=== PATIENT | male | born 1960 | race Caucasian/White ===

== ENCOUNTER → 2016-06-05 | Outpatient (CLI) | payer BC ==
[~2016-06-05] MED LIST: ACET-1138 PO; ASPEC325 PO; ASPI81TA28 PO; FRRG PO; FURO40TA3 PO; HYDR-5688 PO; MELATAB2 PO; METH1CHW PO; MULT-506 PO; OXYC-106 PO; PANT40TA PO; POTA10CA28 PO; PRAM0.129 PO; RXC5 PO; SUVO1TAB4 PO; TRAM-10 PO; ZINC1CAP PO
[2016-06-05 17:16] LABS: BASO % 0.6 %; BASO ABS # 0.05 K/uL (0-0.2); COMPLETE YES; EOS % 3.4 %; HEMATOCRIT 40.2 % (42-52); IG% 0.2 %; LYMPH % 30.5 %; LYMPH ABS # 2.44 K/uL (1.2-3.4); MEAN CELL VOLUME 82.5 fL (80-100); MEAN CORPUSCULAR HEMOGLOBIN 27.9 pg (25-34); MEAN CORPUSCULAR HGB CONC 33.8 g/dl (32-36); MEAN PLATELET VOLUME 10.3 fL (7.4-10.4); MONO % 10.5 %; NEUT % 54.8 %; PLATELET COUNT 430 K/uL (130-400); RED BLOOD COUNT 4.87 M/uL (4.7-6.1); WHITE BLOOD COUNT 8.01 K/uL (4.8-10.8)
[2016-06-05 17:26] LABS: INR 0.9 (0.9-1.1); PARTIAL THROMBOPLASTIN RATIO 1.2; PROTHROMBIN TIME (PATIENT) 9.9 SECONDS (9.0-12.0)
[2016-06-05 19:11] LABS: BLOOD UREA NITROGEN 9 mg/dl (7-18); BUN/CREATININE RATIO 9.9 (10-20); CALCIUM 9.3 mg/dl (8.5-10.1); CARBON DIOXIDE 30 mmol/L (21-32); CHLORIDE 103 mmol/L (98-107); CREATININE 0.96 mg/dl (0.60-1.40); GLUCOSE 94 mg/dl (70-99); POTASSIUM 4.2 mmol/L (3.5-5.1); SODIUM 140 mmol/L (136-145)
[2016-06-05 19:13] LABS: C-REACTIVE PROTEIN < 0.29 mg/dl (0-0.29)
== END | disposition home or self-care (01) ==
LOC: C.LABBC 13:53
PROVIDERS: ATTEND Orthopaedic Surgery Orthopaedic Surgery of the Spine
DX: Z01.812 Encounter for preprocedural laboratory examination (principal)

== ENCOUNTER 2016-06-20 09:08 | Inpatient (IN) | payer BC, OTHER ==
[2016-06-13 15:38] VITALS: BMI 35.0
--- NOTE | 2016-06-14 11:11 | HISTORY & PHYSICAL EXAMINATION ---
DATE OF ADMISSION: 06/20/2016 CHIEF COMPLAINT: Persistent left hip pain and discomfort. HISTORY OF PRESENT ILLNESS: The patient is a 55-year-old gentleman who is well to me from a previous right hip replacement done back in 2007. He has done well from this. Over the past year and a half, he has developed increased pain and discomfort in his left hip and leg area. He had an extensive workup which revealed moderate hip arthritis. He also has had some back issues and did recently undergo back surgery with some relief of symptoms, mostly in his right leg. He continues to be bothered by left hip and pain and discomfort. It is increased with weightbearing. He is having trouble getting around. He uses a cane. X-rays over the past year have shown progressive hip arthritis and he would now like to proceed with surgical treatment. PAST MEDICAL HISTORY: 1. Obesity with a BMI of 40, status post gastric bypass surgery 10 years ago. 2. Gastroesophageal reflux disease. 3. Back pain/spondylosis/sciatica. PAST SURGICAL HISTORY: Previous surgeries include: 1. Back surgery. 2. Gastric bypass surgery 10 years ago. 3. Right hip replacement done 05/28/2007. 4. Cholecystectomy. 5. Fatty tumor removed from his shoulder. ALLERGIES: None. CURRENT MEDICATIONS: None listed. SOCIAL HISTORY: Significant for a 55-year-old gentleman. He is . Does not smoke. FAMILY HISTORY: Noncontributory. REVIEW OF SYSTEMS: Negative for diabetes, neurologic problems, vascular problems, bleeding disorders. Denies any chest pain, no shortness of breath. No history of DVT or PE. He has had gastric bypass surgery. PHYSICAL EXAMINATION: GENERAL: This is a pleasant, middle-aged male. He looks to be in good health. HEENT: Benign. NECK: Supple. No lymphadenopathy. LUNGS: Clear to auscultation. HEART: Has a regular rate and rhythm. ABDOMEN: Soft, nontender, nondistended. EXTREMITIES: Grossly neurovascularly intact except as follows: Examination of left hip and leg reveals the patient walks with markedly antalgic gait. He limps markedly on this side. He does have a prosthesis of his lower extremity. He does have slight valgus alignment to his knee. He has got limited hip motion with pain. No significant knee effusion. He is neurologically intact. X-RAYS: X-rays of the left hip were reviewed. It shows advanced left hip DJD. He has got complete loss of superior joint space which has progressed over the past 6 months. He has got a fairly large cyst in his acetabulum. X-rays of left knee reveal advanced lateral compartment DJD. ASSESSMENT: A 55-year-old gentleman, about 9 years out from right hip replacement with left hip and leg pain consistent with: 1. Advanced left hip arthritis, progressed over the past year. 2. Left knee degenerative joint disease. PLAN: We talked about treatment. His pain is more incapacitating. I think the majority of symptoms are coming from his hip and he would like to proceed with hip replacement surgery. We will take him to the operating room and do a left total hip replacement. The risks and benefits of this procedure were explained to the patient including but not limited to DVT, PE, , infection, neurological injury, vascular injury, bleeding problem, pain, limited range of motion, stiffness, failure to relieve symptoms, incomplete relief of symptoms, need for further surgery in the future, fracture, leg length inequality, nerve palsy, etc. The patient understands and desires to proceed. Informed consent was obtained.
[~2016-06-20] VITALS: Ht 193 cm; Wt 134.0 kg
[2016-06-20] VITALS (12 sets, daily range): BP systolic 97–128; BP diastolic 65–81; PULSE 63–91; TEMP 36.4–38.2; O2SAT 94–100; Ht 193 cm; Wt 134.0 kg
[~2016-06-20 09:08] MED LIST changes: -ACET-1138 PO; +ACETAMINOPHEN 500 MG TAB PO SCH; -ASPEC325 PO; +BUPIVACAINE 0.5 % 5 MG/1 ML PF 10ML VIAL ONE; +CEFAZOLIN 3000 MG/65 ML D5W 65 ML IV SCH; +FAMOTIDINE 20 MG TAB PO SCH; -FRRG PO; +GABAPENTIN 300 MG CAP PO SCH; +LACTATED RINGER'S 1000ML 1,000 ML IV SCH; +LACTATED RINGER'S 1000ML IV SCH; +LACTATED RINGER'S 500 ML IV SCH; +METOCLOPRAMIDE HCL 10 MG TAB PO SCH; -RXC5 PO; +SCOPOLAMINE 1.5 MG TDSY TD SCH; +TRANEXAMIC ACID INJ 1,000 MG in SODIUM CHLORIDE 0.9% 100ML 100 ML IV SCH
[2016-06-20] MEDS ORDERED: MoRPHine SULFATE PF 1 MG/ML 10 ML AMP/VIAL ONE (09:52)
[2016-06-20] MEDS ORDERED: MIDAZOLAM HCL 1 MG/ML 2ML VIAL ONE ×2 (09:52)
--- NOTE | 2016-06-20 11:08 | History & Physical Bridge Note ---
H&P Re-Evaluation Bridge Note: I have examined the patient, reviewed the History & Physical and in the interval since the performance of the History & Physical I have noted the following changes of clinical significance: No changes noted
[2016-06-20] MEDS ORDERED: BUPIVACAINE/EPINEPHRINE 0.5% MPF 1:200,000 30 ML VIAL INJ ONE (12:30)
[2016-06-20] MEDS ORDERED: BACITRACIN 50000 UNIT VIAL IR ONE (12:30)
[2016-06-20] MEDS ORDERED: LACTATED RINGER'S 1000ML 500 ML IV PRN (12:38)
[2016-06-20] MEDS ORDERED: SODIUM CHLORIDE 0.9% 1000ML 1,000 ML IV PRN (12:38)
[2016-06-20] MEDS ORDERED: NALOXONE HCL INJ 0.08 MG in SYRINGE 1.8 ML IV PRN (12:38)
[2016-06-20] MEDS ORDERED: NALOXONE HCL INJ 1 MG in SODIUM CHLORIDE 0.9% 1000ML 1,000 ML IV PRN (12:38)
[2016-06-20] MEDS ORDERED: FENTANYL CITRATE INJ 50 MCG/1 ML 2 ML VIAL IV PRN (12:45)
[2016-06-20] MEDS ORDERED: ATROPINE SULFATE 0.1 MG/ML 5ML SYR IV PRN (12:45)
[2016-06-20] MEDS ORDERED: MoRPHine SULFATE 2 MG/ML CARP IV PRN (12:45)
[2016-06-20] MEDS ORDERED: MoRPHine SULFATE PF 1 MG/ML 10 ML AMP/VIAL EPI PRN (12:45)
[2016-06-20] MEDS ORDERED: NALBUPHINE HCL INJ 10 MG/ML AMP IV PRN (12:45)
[2016-06-20] MEDS ORDERED: NO NARCOTICS OR SEDATIVES SCH (12:45)
[2016-06-20] MEDS ORDERED: LORAZEPAM INJ 0.5 MG in SYRINGE 0.75 ML IV PRN (12:45)
[2016-06-20] MEDS ORDERED: KETOROLAC TROMETHAMINE 30 MG/ML VIAL IV. PRN (12:45)
[2016-06-20] MEDS ORDERED: METOCLOPRAMIDE HCL INJ 20 MG in SODIUM CHLORIDE 0.9% 50ML 50 ML IV PRN (12:45)
[2016-06-20] MEDS ORDERED: EpHEDrine SULFATE INJ 50 MG/ML AMP IV PRN ×2 (12:45)
[2016-06-20] MEDS ORDERED: LORAZEPAM 1 MG TAB PO PRN (12:45)
[2016-06-20] MEDS ORDERED: ONDANSETRON INJ 2 MG/ML 2 ML VIAL IV PRN ×2 (12:45)
[2016-06-20] MEDS ORDERED: DiphenhydrAMINE HCL 50 MG/ML VIAL IV PRN ×2 (12:45)
[2016-06-20] MEDS ORDERED: MEPERIDINE HCL 25 MG/ML CARP IV PRN (12:45)
[2016-06-20] MEDS ORDERED: NALOXONE HCL 0.4 MG/1 ML VIAL/CARP IV PRN (12:45)
[2016-06-20] MEDS ORDERED: PROMETHAZINE HCL INJ 25 MG in SODIUM CHLORIDE 0.9% 50ML 50 ML IV PRN (12:45)
--- NOTE | 2016-06-20 12:54 | [facility] Post Operative Brief Note ---
Immediate Operative Summary Operative Date Jun 20, 2016. Pre-Operative Diagnosis Advanced Left Hip Arthritis Post-Operative Diagnosis Advanced Left Hip Arthritis Procedure(s) Performed Left Total Hip Arthroplasty-Uncemented Surgeon Dr. Noman Man Artificial Marble Worker Surgeon(s) Abdon Young PA-C Estimated Blood Loss 300 ml Findings Left Hip DJD Fluids (cc crystalloids) 1600 cc Specimens A. Left Femoral Head Drains None Anesthesia Spinal Complication(s) None Disposition Recovery Room / PACU
[2016-06-20] MEDS ORDERED: BISACODYL 10 MG SUPP PR PRN (13:00)
[2016-06-20] MEDS ORDERED: ALUMINUM/MAGNESIUM/SIMETH (MAALOX MAX) 30 ML UDC PO PRN (13:00)
[2016-06-20] MEDS ORDERED: TAMSULOSIN HCL 0.4 MG CAP PO PRN (13:00)
[2016-06-20] MEDS ORDERED: MAGNESIUM HYDROXIDE SUSP 30 ML UDC PO PRN (13:00)
[2016-06-20] MEDS ORDERED: SILVER SULFADIAZINE 1% CR 50 GM JAR EXT PRN (13:00)
--- NOTE | 2016-06-20 13:40 | DIAGNOSTIC IMAGING REPORT ---
SINGLE VIEW PELVIS; 2 VIEWS LEFT HIP CLINIC HISTORY: Postoperative examination. FINDINGS: An AP portable view of the hips and pelvis with AP and crosstable lateral portable views of the left hip are compared to study dated 06/06/2016. The skeletal structures are osteopenic. A right hip arthroplasty is unchanged in appearance. There is a new bipolar left hip arthroplasty in near-anatomic alignment. 2 cortical lag screws transfix the acetabular cup. No acute fracture is seen. There are expected postoperative changes overlying the left hip including skin clips, subcutaneous gas, and soft tissue swelling. IMPRESSION: Expected postoperative findings status post left hip arthroplasty. No acute fracture is seen. Electronically signed by: Cirilo Duran M.D. 06/20/2016 1:39 PM Dictated Date/Time: 06/20/2016 1:34 PM
[2016-06-20] MEDS ORDERED: LIDOCAINE HCL 2% 2 ML VIAL (20MG/ML) ONE (13:53)
[2016-06-20] MEDS ORDERED: PROPOFOL IV EMULSION 10 MG/ML 20 ML VIAL IV ONE (13:53)
--- NOTE | 2016-06-20 13:56 | OPERATIVE REPORT ---
DATE OF OPERATION: 06/20/2016 SURGEON: Dr. Noman Man. MARKETING PROJECT SPECIALIST: ZIGGY Islas PREOPERATIVE DIAGNOSIS: Left hip degenerative joint disease. POSTOPERATIVE DIAGNOSIS: Same. PROCEDURE PERFORMED: Left ceramic on highly cross-linked polyethylene uncemented total hip arthroplasty. COMPLICATIONS: None. ESTIMATED BLOOD LOSS: 300 mL. FLUID REPLACEMENT: 1600 mL crystalloid fluid replacement. ANESTHESIA: Spinal. DRAINS: None. SPECIMENS: Left femoral head sent for pathology. 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 He has been through extensive conservative care. He actually had spine surgery about 3 months ago to try and improve some of his pain, but it helped fairly minimally. X-rays showed progressive left hip DJD with loss of his joint space and cystic change, particularly in the acetabulum. He had failed conservative treatment and elected to proceed with operative treatment. OPERATIVE FINDINGS: Operative findings revealed advanced left hip DJD. Moderate sized joint effusion. Pretty significant osteophytes around the acetabulum, particularly anteriorly. OPERATIVE IMPLANTS: Operative implants consisted of: 1. Biomet G7 size 58-mm acetabular shell. 2. An apex hole eliminator. 3. A 6.5 cancellous acetabular screws, 1 at 35 mm length and 1 at 25 mm in length. 4. A highly cross-linked polyethylene liner with 58 mm outer diameter and 36 mm inner diameter. 5. A DePuy size 18 large stature AML femoral stem. 6. A +5/36 mm ceramic articular ball. OPERATIVE PROCEDURE: The patient was taken to the operating room, identified and placed on the operating table in the supine position. All contact areas were appropriately padded. IV antibiotics were provided by anesthesia team. A spinal anesthetic had been implemented in holding area. Leal catheter was placed in sterile fashion. The patient was then placed in the right lateral decubitus position. An axillary roll was placed. Stulberg hip positioner was used for positioning. Left hip and leg were then prepped and draped in usual sterile fashion. A posterolateral approach to the left hip was then performed through a curvilinear incision centered over the greater trochanter. Sharp dissection was carried out through the subcutaneous tissues down to the level of the IT band and gluteal fascia. The IT band and gluteal fascia were then incised longitudinally in line with skin incision. The greater trochanteric bursa was excised. The piriformis and external rotators were then tagged and taken off the posterior aspect of the femur. Great care was taken throughout the procedure to protect the sciatic nerve at all times. Posterior capsulotomy was then performed leaving a large flap for later repair. It was internally rotated and dislocated. Femoral neck osteotomy cut was made with the final cut 20 mm above the lesser trochanter. Femoral head was removed and sent for pathology. The femur was retracted anteriorly. Attention was then drawn to the acetabulum. The acetabulum labrum was excised. The pulvinar fat was excised. Sequential reaming of the acetabulum was then performed beginning with a size 51 and progressing up to 57. A 58-mm Biomet G7 acetabular shell was then placed in about 40 degrees of lateral opening and 20 degrees of anteversion. It was fixed with two 6.5 cancellous acetabular screws. A pretty significant anterior osteophyte was removed. A trial liner was placed. Attention was then drawn to the femur. The proximal femur was entered with a cookie cutter followed by canal finder and lateralizing reamer. Sequential reaming of the femur was then performed beginning with a size 10 and progressing up to a 17.5. We got pretty good chatter at 17.5. I then broached beginning with a size 13.5 small broach and progressing up to an 18 large. We got excellent metaphyseal fit. Calcar reamer was used to smooth off the calcar. The hip was then trialed. The +5/36 mm articular ball provided full stability in full extension and in external rotation and flexion to 90 degrees and internal rotation to over 70 degrees. Soft tissue tension appeared appropriate. It was difficult to assess leg lengths when he does not have the femoral aspect of his extremity. We elected to place these implants. All trial implants were removed. The wound was irrigated with copious amounts of normal saline. An apex hole eliminator was placed. A highly cross-linked polyethylene liner was placed. An 18 large stature AML femoral stem was placed. We got excellent scratch fit. A +5/36 mm ceramic articular ball was placed. Hip was located. It was once again found to be stable. Attention was then drawn toward closing. The wound was irrigated with copious amounts of pulsatile lavage solution. I injected locally with 60 mL of 0.5% Marcaine with epinephrine. The posterior capsule and external rotators were then tagged and repaired to the posterior aspect of the hip with #2 Ti-Cron suture through drill holes in the trochanter. The IT band and gluteal fascia were then closed with #1 PDS suture in running fashion. The subcutaneous tissues were then closed with 2-0 Dexon suture in a buried interrupted fashion. The skin was closed with skin fredy. Leg was then cleaned and dried and a sterile dressing with Xeroform, 4 x 4, sterile ABD pad and foam tape was applied. The patient then transferred to the recovery room in stable condition. The patient tolerated the procedure well with no complications. All needle and sponge counts were correct at the end of the operation. I attest to the content of the Intraoperative Record and any orders documented therein. Any exceptions are noted below. JUAN JD
--- NOTE | 2016-06-20 14:43 | Anesthesiology Progress Note ---
Anesthesia Post Op Note Date & Time Jun 20, 2016 at 14:42 Vital Signs Pain Intensity: 0.0 Vital Signs Past 12 Hours Date Time Temp Pulse Resp B/P Pulse Ox O2 Delivery O2 Flow Rate FiO2 06/20/16 14:05 36.5 75 16 100/69 98 Nasal Cannula 2.0 06/20/16 14:05 92 Nasal Cannula 2.0 06/20/16 13:45 64 16 92/63 98 Nasal Cannula 2 06/20/16 13:30 36.4 71 17 115/57 97 Nasal Cannula 2 06/20/16 13:20 74 16 101/64 99 Nasal Cannula 2 06/20/16 13:10 76 15 99/60 98 Nasal Cannula 2 06/20/16 13:00 80 17 94/64 100 Mask 10 06/20/16 12:52 36.2 79 16 87/61 100 Mask 10 06/20/16 10:13 36.9 73 20 118/81 94 Room Air Notes Mental Status: alert / awake / arousable, participated in evaluation Pt Amnestic to Procedure: Yes Nausea / Vomiting: adequately controlled Pain: adequately controlled Airway Patency, RR, SpO2: stable & adequate BP & HR: stable & adequate Hydration State: stable & adequate Neuraxial Anesthesia: was administered, sensory block is resolving Anesthetic Complications: no major complications apparent
--- NOTE | 2016-06-20 15:20 | PROGRESS NOTE ---
DATE: 06/20/2016 SUBJECTIVE: A 55-year-old gentleman postop from a left hip replacement. He is doing well. No pain yet. No chest pain or shortness of breath. Not feeling dizzy or lightheaded. PHYSICAL EXAMINATION: VITAL SIGNS: Temperature 36.5. Vital signs stable. GENERAL: Reveals a healthy, pleasant middle-aged male. He is sitting up in bed and looks comfortable. He is talking to his . LUNGS: Clear to auscultation. HEART: Regular rate and rhythm. ABDOMEN: Soft, nontender, nondistended. EXTREMITIES: Grossly neurovascularly intact except as follows: Examination of the left lower extremity reveals the leg to be well aligned. Neurovascular status is limited due to his lack of a foot. He can ____ his quad appropriately. Hamstrings are working appropriately. His hip is located. X-RAYS: X-rays of the left hip the recovery room were reviewed. Shows left cemented hip replacement. Components looked to be in good position. No signs of problems. ASSESSMENT: A 55-year-old gentleman postop from a left hip replacement, doing well. His pain is controlled. Hip is located. PLAN: 1. DVT prophylaxis including thigh-high TEDs, SCDs, and aspirin twice a day. 2. PT/OT. Weightbear as tolerated. Left total hip protocol. 3. Pain control, not have any pain yet. Will continue current pain regimen and afford IV antibiotics x24 hours. 4. Disposition: He is planning to be discharged to home with likely some home health once adequately recovered.
[2016-06-20] MEDS: D5W AND 1/2NSS + 20MEQ KCL 1,000 ML IV SCH ×2 (15:40→23:28)
[2016-06-20] MEDS: CHECK SCOPOLAMINE PATCH PLACEMENT SCH ×2 (15:41→23:27)
[2016-06-20] MEDS: FERROUS GLUCONATE 324 MG TAB PO SCH (18:00)
[2016-06-20] MEDS ORDERED: TRANEXAMIC ACID INJ 1,000 MG in SODIUM CHLORIDE 0.9% 100ML 100 ML IV SCH (19:00)
[2016-06-20] MEDS: CEFAZOLIN IV 2,000 MG in DEXTROSE 5% 50ML 50 ML IV SCH (19:41)
[2016-06-20] MEDS: BELSOMRA 20 MG PO SCH (21:00)
[2016-06-20] MEDS ORDERED: NON-FORMULARY MEDICATION (Melatonin (Melatonin Maximum Strengt) 1 TAB) PO SCH (21:00)
[2016-06-20] MEDS: PRAMIPEXOLE DIHYDROCHLORIDE 0.25MG TAB PO SCH (21:33)
[2016-06-20] MEDS: DOCUSATE SODIUM 100 MG CAP PO SCH (21:33)
[2016-06-20] MEDS: ASPIRIN 325 MG ECTAB PO SCH (21:33)
[2016-06-20] MEDS: ACETAMINOPHEN 500 MG TAB PO SCH (21:34)
[2016-06-21] VITALS (12 sets, daily range): BP systolic 102–110; BP diastolic 55–74; PULSE 68–86; TEMP 36.7–37.9; O2SAT 94–100
[2016-06-21] MEDS: CEFAZOLIN IV 2,000 MG in DEXTROSE 5% 50ML 50 ML IV SCH (03:19)
[2016-06-21] MEDS: D5W AND 1/2NSS + 20MEQ KCL 1,000 ML IV SCH ×2 (03:20→09:26)
[2016-06-21] MEDS ORDERED: METOCLOPRAMIDE HCL INJ 5 MG/ML 2 ML VIAL IV PRN (05:00)
[2016-06-21] MEDS ORDERED: ONDANSETRON INJ 2 MG/ML 2 ML VIAL IV PRN (05:00)
[2016-06-21] MEDS ORDERED: ZOLPIDEM TARTRATE 5 MG TAB PO PRN (05:00)
[2016-06-21] MEDS ORDERED: DiphenhydrAMINE HCL 50 MG/ML VIAL IV PRN (05:00)
[2016-06-21] MEDS ORDERED: DC INTRASPINAL MORPHINE ONE (05:00)
[2016-06-21] MEDS ORDERED: MoRPHine SULFATE 4 MG/ML 1 ML CARP\\VIAL IV PRN (05:00)
[2016-06-21] MEDS: KETOROLAC TROMETHAMINE 30 MG/ML VIAL IV. SCH ×4 (05:11→23:35)
[2016-06-21] MEDS: ACETAMINOPHEN 500 MG TAB PO SCH ×3 (05:11→22:13)
[2016-06-21 06:17] LABS: BASO % 0.2 %; BASO ABS # 0.02 K/uL (0-0.2); COMPLETE YES; EOS % 0.2 %; IG% 0.2 %; LYMPH % 13.7 %; LYMPH ABS # 1.55 K/uL (1.2-3.4); MEAN CELL VOLUME 82.1 fL (80-100); MEAN CORPUSCULAR HEMOGLOBIN 27.7 pg (25-34); MEAN CORPUSCULAR HGB CONC 33.8 g/dl (32-36); MEAN PLATELET VOLUME 10.1 fL (7.4-10.4); MONO % 13.2 %; NEUT % 72.5 %; PLATELET COUNT 226 K/uL (130-400); WHITE BLOOD COUNT 11.31 K/uL (4.8-10.8)
[2016-06-21] MEDS: OXYCODONE HCL IR 5 MG TAB (IMMEDIATE RELEASE) PO PRN ×5 (06:27→23:36)
[2016-06-21 06:56] LABS: BUN/CREATININE RATIO 13.1 (10-20); CALCIUM 8.3 mg/dl (8.5-10.1); CREATININE 0.92 mg/dl (0.60-1.40); POTASSIUM 3.9 mmol/L (3.5-5.1)
[2016-06-21] MEDS: CHECK SCOPOLAMINE PATCH PLACEMENT SCH ×3 (07:41→23:35)
--- NOTE | 2016-06-21 07:43 | PROGRESS NOTE ---
DATE: 06/21/2016 SUBJECTIVE: A 55-year-old gentleman postop day 1 from a left total hip replacement. She is doing pretty well. Had quite a bit of pain last night, got some pain medicine, doing much better this morning. No chest pain or shortness of breath. Not feeling dizzy or lightheaded. OBJECTIVE: VITAL SIGNS: Temperature is 37.9. Vital signs stable. GENERAL: Physical examination reveals a healthy, pleasant, middle-aged male. He is sitting up in bed, looks pretty comfortable. LUNGS: Clear to auscultation. HEART: Regular rate and rhythm. ABDOMEN: Soft, nontender, nondistended. EXTREMITIES: Grossly neurovascularly intact except as follows: Examination of left lower extremity reveals the leg to be well aligned. Dressing is clean, dry and intact. Thigh is soft and supple. Fairly mild swelling. He is neurologically stable. LABS: Hemoglobin 10.8, hematocrit 32.0. Electrolytes are stable. ASSESSMENT: A 55-year-old gentleman postop day 1 from left total hip replacement, doing pretty well. Pain is reasonably well controlled. Hip is located. PLAN: 1. DVT prophylaxis including thigh-high TEDs, SCDs, and aspirin twice a day. 2. PT/OT. Weightbearing as tolerated. Left total hip protocol. 3. Pain control, doing pretty well with current pain regimen. 4. Disposition: He is planning to be discharged to home with likely some home health once stable.
[2016-06-21] MEDS ORDERED: PANTOprazole SOD 40 MG TAB PO SCH (09:00)
[2016-06-21] MEDS ORDERED: MULTIVITAMIN TAB PO SCH (09:00)
[2016-06-21] MEDS: ASPIRIN 325 MG ECTAB PO SCH ×2 (09:22→20:43)
[2016-06-21] MEDS: FERROUS GLUCONATE 324 MG TAB PO SCH ×3 (09:22→18:00)
[2016-06-21] MEDS: DOCUSATE SODIUM 100 MG CAP PO SCH ×2 (09:23→20:43)
[2016-06-21] MEDS: ZINC SULFATE 220 MG CAP PO SCH (09:23)
[2016-06-21] MEDS: MULTIVITAMIN TAB PO SCH (09:23)
[2016-06-21] MEDS: FUROSEMIDE 40 MG TAB PO SCH (09:24)
[2016-06-21] MEDS: CYANOCOBALAMIN 500 MCG TAB (VIT B-12) PO SCH (09:24)
[2016-06-21] MEDS: PANTOprazole SOD 40 MG TAB PO SCH (09:25)
[2016-06-21] MEDS: POTASSIUM CHLORIDE 10 MEQ TABCR PO SCH (09:25)
[2016-06-21] MEDS: TAPENTADOL ER 50 MG TABCR PO SCH ×2 (09:35→20:43)
[2016-06-21] MEDS ORDERED: ACET-1138 PO (15:29)
[2016-06-21] MEDS ORDERED: RXC5 PO (15:29)
[2016-06-21] MEDS ORDERED: ASPEC325 PO (15:29)
[2016-06-21] MEDS ORDERED: FRRG PO (15:31)
--- NOTE | 2016-06-21 15:35 | Discharge Instructions ---
Discharge Instructions Admission Reason for Admission: Left Hip Osteoarthritis Discharge Discharge Diagnosis / Problem: Left Hip Replacement Discharge Goals Goal(s): Decrease discomfort, Improve function, Increase independence, Improve disease control, Therapeutic intervention Activity Recommendations Activity Limitations: per Instructions/Follow-up section (Total Hip Precautions ) Weightbearing Status: Left weightbearing . Instructions / Follow-Up Instructions / Follow-Up ACTIVITY RECOMMENDATIONS: Physical Therapy: * Aggressive physical therapy is not usually needed. You will learn to take care of yourself safely and walk. * Follow the "Hip Precautions Instructions." * In some cases, the social service director at the hospital will arrange to have a therapist come to your house for the first couple of weeks to help you learn these skills. * You need to practice on your own or with the help of a family member as needed. * When you learn these skills, most of the therapy can be done on your own. Home Exercise: * You were shown a series of exercises in the hospital. Do these exercises three to four times each day including the exercises you were shown in physical therapy. Walking: * Get up and walk several times each day. For the first four weeks, try not to stand or walk for more than one hour at a time. If you do stand or walk for more than one hour, you will not hurt anything, but your leg will likely swell. * As you feel comfortable, you may change from the walker or crutches to a cane and then to independent walking. MEDICATIONS: New Medicine: * You will likely be taking one or more of these medicines: 1. Oxycodone - Take, as directed, when you need it, every four to six hours to control your pain. 2. Iron Sulfate - Take three times each day for the month after surgery to help you replace the blood lost during surgery. 3. Aspirin - Thins your blood to lessen the chance of forming a blood clot. * The most common side effects of pain medicine and iron are nausea and constipation. If nausea or constipation is too much of a problem or if you have any questions about your new medicines or doses, call [facility] at [phone]. We will try to help you manage these issues. VERY IMPORTANT TO READ AND REVIEW" Pain: * The immediate post-operative period after hip replacement surgery is often quite painful. * You are given a prescription for pain medicine. You should take it, as directed, when you need it, especially before physical therapy and before going to bed. Pain that interferes with sleep is very common and can last several months. * You will likely need pain medicine for the first two to four weeks. It will not stop all of the pain. The pain will lessen and as you feel better, you may change to milder pain medicine such as Tylenol. * The most common side effects of pain medicine are nausea and constipation, so don't take more than you need. SPECIAL CARE INSTRUCTIONS: TEDs/Elastic Stockings: * The white elastic stockings help limit swelling and prevent blood clots from forming in your legs. The more you wear them, the more they work. * Wear them for six weeks. Prevention of Infection: * Take antibiotics one hour before any dental cleaning, dental work, urological procedure, gastrointestinal procedure or any invasive surgery in order to prevent your new joint from getting infected. * You may get the antibiotics from the doctor performing the procedure or you may call our office at before and we will call in a prescription to the pharmacy of your choice. Things to Watch For: * Drainage from the incision site that occurs more than one week after your surgery. * Severely increased leg pain or swelling. * Increased redness at the incision site. * Fever above 102 degrees Fahrenheit. * Unusual chest pain or shortness of breath. * Unusual pain or burning with urination. Call [facility] at with any of the above problems or if you have any questions about your medicines or recovery. FOLLOW UP VISIT: Make an appointment to see your doctor for approximately two weeks after surgery for a progress check and staple removal by calling the office at . Current Hospital Diet Patient's current hospital diet: Regular Diet Discharge Diet Recommended Diet: Regular Diet Procedures Procedures Performed: Left Total Hip Arthroplasty-Uncemented Pending Studies Studies pending at discharge: no Medical Emergencies . Who to Call and When: Medical Emergencies: If at any time you feel your situation is an emergency, please call [phone] immediately. . Non-Emergent Contact Non-Emergency issues call your: Surgeon . "Provider Documentation" section prepared by Noman Man. VTE Core Measure Inpt VTE Proph given/why not?: Other Anticoagulation, T.E.D. Stockings, SCD's
[2016-06-21] MEDS: PRAMIPEXOLE DIHYDROCHLORIDE 0.25MG TAB PO SCH (20:43)
[2016-06-21] MEDS: BELSOMRA 20 MG PO SCH (20:44)
[2016-06-22] MEDS: ACETAMINOPHEN 500 MG TAB PO SCH (05:28)
[2016-06-22] MEDS: KETOROLAC TROMETHAMINE 30 MG/ML VIAL IV. SCH ×3 (05:28→13:07)
[2016-06-22 06:54] VITALS: BP 106/64; PULSE 81; TEMP 36.8; O2SAT 93
--- NOTE | 2016-06-22 08:15 | PROGRESS NOTE ---
DATE: 06/22/2016 SUBJECTIVE: A 55-year-old gentleman postop day 2 from a left hip replacement. Pain is improved. He denies any chest pain or shortness of breath. Not feeling dizzy or lightheaded. OBJECTIVE: VITAL SIGNS: Temperature 36.8. Vital signs stable. PHYSICAL EXAMINATION: GENERAL: Reveals a healthy, pleasant, middle-aged male. He is sitting up in bed paper and reading the paper. He looks pretty comfortable. LUNGS: Clear to auscultation. HEART: Regular rate and rhythm. ABDOMEN: Soft, nontender, nondistended. EXTREMITIES: Grossly neurovascularly intact except as follows: Examination of the left lower extremity reveals the leg to be well aligned. Hip is located. He is neurologically intact. ASSESSMENT: A 55-year-old gentleman postoperative day 2 from a left total hip replacement, doing well. His pain is reasonably controlled. Therapy went pretty well. PLAN: 1. DVT prophylaxis including thigh-high TEDs, SCDs, and aspirin twice a day. 2. PT/OT. Weightbearing as tolerated. Left total hip protocol. 3. Pain control. Doing well with current pain regimen. 4. Disposition: Plan to discharge to home with home health.
[2016-06-22] MEDS: ASPIRIN 325 MG ECTAB PO SCH (08:46)
[2016-06-22] MEDS: CYANOCOBALAMIN 500 MCG TAB (VIT B-12) PO SCH (08:46)
[2016-06-22] MEDS: FERROUS GLUCONATE 324 MG TAB PO SCH ×2 (08:46→13:04)
[2016-06-22] MEDS: MULTIVITAMIN TAB PO SCH (08:46)
[2016-06-22] MEDS: DOCUSATE SODIUM 100 MG CAP PO SCH (08:46)
[2016-06-22] MEDS: PANTOprazole SOD 40 MG TAB PO SCH (08:46)
[2016-06-22] MEDS: POTASSIUM CHLORIDE 10 MEQ TABCR PO SCH (08:46)
[2016-06-22] MEDS: ZINC SULFATE 220 MG CAP PO SCH (08:46)
[2016-06-22] MEDS: FUROSEMIDE 40 MG TAB PO SCH (08:47)
[2016-06-22] MEDS: TAPENTADOL ER 50 MG TABCR PO SCH (08:51)
[2016-06-22] MEDS: OXYCODONE HCL IR 5 MG TAB (IMMEDIATE RELEASE) PO PRN ×2 (08:51→13:04)
[2016-06-22 08:52] VITALS: BP 106/64; PULSE 81; TEMP 36.8; O2SAT 93
--- NOTE | 2016-07-01 14:14 | DISCHARGE SUMMARY ---
ADMITTING PHYSICIAN AND SURGEON: Dr. Man. ADMITTING DIAGNOSIS: Left hip degenerative joint disease. SURGERY PERFORMED: Left total hip arthroplasty. SECONDARY DIAGNOSES: Include obesity, gastroesophageal reflux disease, back pain, sciatica. HISTORY AND PHYSICAL EXAMINATION: Well documented in patient's chart. CONSULTATIONS: None obtained. HOSPITAL COURSE: The patient was admitted on 06/20/2016 and underwent total hip arthroplasty, tolerated the procedure well. There were no complications. He was transferred to the PACU postoperatively and later to the orthopedic floor for further care. He was given Ancef for antibiotic prophylaxis, AAKASH stockings, SCDs and aspirin for DVT prophylaxis. Hemoglobin, hematocrit and vital signs were monitored during his hospital stay and remained stable. He developed some mild postoperative anemia with a hemoglobin down to 10.8. Did not require blood transfusions. By postoperative day 2, he was tolerating a general diet, pain was controlled with oral pain medicine. He was participating in physical therapy, had no signs or symptoms of deep vein thrombosis. On postop day 2, he was discharged home in good condition, set up with home health services. He was given printed discharge instructions including prescriptions for extra strength Tylenol, aspirin 325 mg b.i.d., an iron supplement and oxycodone. He can continue his home medications with the exception of his home dose of aspirin, which was changed. Continue physical therapy. He is weightbearing as tolerated, AAKASH stockings, total hip precautions. Follow up in 10-12 days or sooner if there are any problems or concerns.
== END 2016-06-22 13:15 | disposition home health service (06) | DRG 470 ==
LOC: ENRESERVTM → ENRESERVDT → C.ACU 09:08 → C.3E 12:58
PROVIDERS: ADMIT Orthopaedic Surgery Sports Medicine; ATTEND Orthopaedic Surgery Sports Medicine
PROC: 0SRB04A Replacement of Left Hip Joint with Ceramic on Polyethylene Synthetic Substitute, Uncemented, Open Approach (ICD-10-PCS; principal; 2016-06-20 11:15)
DX: M16.12 Unilateral primary osteoarthritis, left hip (principal); Z68.41 Body mass index [BMI] 40.0-44.9, adult; E66.9 Obesity, unspecified; Z96.641 Presence of right artificial hip joint; Z98.84 Bariatric surgery status

== ENCOUNTER 2019-11-28 06:04 | Observation (INO) ==
--- NOTE | 2019-11-24 09:35 | Anesthesiology Consultation ---
Date of Service November 24, 2019 Assessment & Plan (1) Encounter for pre-operative examination: COVID Status: As of 11/17 nurse assessment, patient denies travel to endemic area, known exposure/sick contacts, or symptoms of COVID19. Preoperative COVID19 testing completed on 11/22 at [facility], results pending. No pre-op EKG received. If not received prior, will do AM DOS. Patient is on Lasix and no pre-op BMP was ordered. Will be done AM DOS. Chart Review Chart Review: Acceptable Risk for Surgery (pending pre op EKG and BMP) and Patient NOT seen in Pre Admission Testing History Surgery Operation Date: 11/28/19 07:30 Proposed Procedures p Panniculectomy - Carolina Metcalf MD Height/Weight Height: 6 ft 2 in Weight: 133.81 kg Allergies Allergy/AdvReac Type Severity Reaction Status Date / Time No Known Allergies Allergy Unknown Verified 11/18/19 15:26 Medications Home Medications Medication Instructions Recorded Confirmed Last Taken oxycodone-acetaminophen 5 mg-325 1 tab PO Q4H PRN #18 tab 11/14/19 11/18/19 Unknown mg tablet ascorbic acid (vitamin C) [Vitamin 500 mg PO QAM 11/18/19 11/18/19 Unknown C] aspirin 81 mg PO QAM 11/18/19 11/18/19 Unknown calcium carbonate-vitamin D3 1 cap PO QAM 11/18/19 11/18/19 Unknown [Calcium 600 + D(3)] celecoxib [Celebrex] 100 mg PO QAM 11/18/19 11/18/19 Unknown cyanocobalamin (vitamin B-12) 500 mcg PO QAM 11/18/19 11/18/19 Unknown [Vitamin B-12] ferrous sulfate [iron] 325 mg PO QAM 11/18/19 11/18/19 Unknown fish,bora,flax oils-om3,6,9no1 1 cap PO QAM 11/18/19 11/18/19 Unknown [[place] 3-6-9] furosemide 40 mg PO QAM 11/18/19 11/18/19 Unknown linaclotide [Linzess] 145 mcg PO DAILY PRN 11/18/19 11/18/19 Unknown magnesium 200 mg PO QAM 11/18/19 11/18/19 Unknown melatonin 10 mg PO HS 11/18/19 11/18/19 Unknown minocycline 100 mg PO QAM 11/18/19 11/18/19 Unknown multivitamin 1 cap PO QAM 11/18/19 11/18/19 Unknown omega 3-exc-wrv-fish oil [Fish Oil] 1 cap PO QAM 11/18/19 11/18/19 Unknown potassium chloride 10 meq PO UD 11/18/19 11/18/19 Unknown ramelteon [Rozerem] 8 mg PO HS 11/18/19 11/18/19 Unknown turmeric 800 mg PO QAM 11/18/19 11/18/19 Unknown vitamin E 1,000 unit PO QAM 11/18/19 11/18/19 Unknown zinc 50 mg PO QAM 11/18/19 11/18/19 Unknown Past Medical History Medical History (Updated 11/24/19 @ 09:40 by Trey Franco) Constipation started on Linzess Depression with anxiety no medications Obesity Osteoarthritis Past Family History Family History Other Heart disease Past Surgical History Surgical History History of cholecystectomy (~02/1992) History of gastric bypass (~05/2008) History of left hip replacement (~05/2016) History of right hip replacement (~05/2009) Previous back surgery (~05/2015) lumbar discectomy Social History Smoking Status: Never smoker tobacco type: smokeless tobacco Do You Dip or Chew Tobacco: Yes (advised) Hx Alcohol Use: No Hx Substance Use: No substance use type: does not use Testing Laboratory Results 11/23/19 WBC: 6.9 H/H: 13.8/41.9 PLATELETS: 334 PT: 9.6 PTT: 26 INR: 0.96
[~2019-11-28 06:04] MED LIST changes: -ACETAMINOPHEN 500 MG TAB PO SCH; -ASPI81TA28 PO; -BUPIVACAINE 0.5 % 5 MG/1 ML PF 10ML VIAL ONE; +CEFAZOLIN 2000MG 2,000 MG/15 ML SYR IV SCH; -CEFAZOLIN 3000 MG/65 ML D5W 65 ML IV SCH; +CEFAZOLIN 3000MG 72.5 ML IV SCH; -FAMOTIDINE 20 MG TAB PO SCH; -FURO40TA3 PO; -GABAPENTIN 300 MG CAP PO SCH; -HYDR-5688 PO; -LACTATED RINGER'S 1000ML 1,000 ML IV SCH; -LACTATED RINGER'S 1000ML IV SCH; -LACTATED RINGER'S 500 ML IV SCH; +LR 15ML/HR IV SCH; -MELATAB2 PO; -METH1CHW PO; -METOCLOPRAMIDE HCL 10 MG TAB PO SCH; -MULT-506 PO; -OXYC-106 PO; -PANT40TA PO; -POTA10CA28 PO; -PRAM0.129 PO; -SCOPOLAMINE 1.5 MG TDSY TD SCH; -SUVO1TAB4 PO; -TRAM-10 PO; -TRANEXAMIC ACID INJ 1,000 MG in SODIUM CHLORIDE 0.9% 100ML 100 ML IV SCH; -ZINC1CAP PO
[2019-11-28] MEDS ORDERED: GLYCOPYRROLATE 0.2 MG/ML VIAL ONE (06:41)
[2019-11-28] MEDS ORDERED: NEOSTIGMINE METHYLSULFATE 5 MG/5 ML SYR ONE (06:41)
[2019-11-28] MEDS ORDERED: PROPOFOL IV EMULSION 10 MG/ML 20 ML VIAL IV ONE (06:41)
[2019-11-28] MEDS ORDERED: LIDOCAINE HCL 2% 2 ML VIAL/AMP(20MG/ML) INFIL ONE (06:41)
[2019-11-28] MEDS ORDERED: DEXAMETHASONE SOD INJ 4 MG/ML VIAL ONE (06:41)
[2019-11-28] MEDS ORDERED: ROCURONIUM BROMIDE 10 MG/ML 5 ML VIAL IV ONE ×5 (06:41→09:03)
[2019-11-28] MEDS ORDERED: MIDAZOLAM HCL 1 MG/ML 2ML VIAL ONE (06:41)
[2019-11-28] MEDS ORDERED: ONDANSETRON INJ 2 MG/ML 2 ML VIAL ONE (06:41)
[2019-11-28] MEDS ORDERED: HYDROmorphone INJ 2 MG/ML SYR/VIAL ONE (06:41)
[2019-11-28] MEDS ORDERED: LARYING-O-JET KIT (LTA) ONE (06:57)
--- NOTE | 2019-11-28 07:04 | History & Physical Bridge Note ---
Date of Service November 28, 2019 History & Physical Bridge Note I have examined the patient, reviewed the History & Physical and in the interval since the performance of the History & Physical I have noted the following changes of clinical significance: no changes noted
[2019-11-28] MEDS ORDERED: LIDOCAINE/EPINEPHRINE 1% 20 ML VIAL ONE (07:06)
[2019-11-28] MEDS ORDERED: EPINEPHrine INJ 1 MG/ML AMP ONE (07:06)
[2019-11-28] MEDS ORDERED: BUPIVACAINE 0.25% 30 ML VIAL ONE (07:06)
[2019-11-28] MEDS ORDERED: LIDOCAINE HCL 1% 20 ML VIAL ONE (07:06)
[2019-11-28] MEDS ORDERED: ePHEDrine sulfate 50 MG/ML AMP IV PRN (07:50)
[2019-11-28] MEDS ORDERED: ONDANSETRON INJ 2 MG/ML 2 ML VIAL IV PRN ×3 (07:50→11:55)
[2019-11-28] MEDS ORDERED: ATROPINE SULFATE 0.1 MG/ML 10ML SYR IV PRN (07:50)
[2019-11-28] MEDS ORDERED: HYDROmorphone INJ 2 MG/ML SYR/VIAL IV PRN (07:50)
[2019-11-28] MEDS ORDERED: fentaNYL citrate 100 MCG/2 ML VIAL ONE ×2 (10:58→12:02)
--- NOTE | 2019-11-28 11:37 | Post Operative Brief Note ---
PG Immediate Post Op with CF Date of Surgery November 28, 2019 Pre & Post Diagnosis Operation Date: 11/28/19 07:30 Pre-Op Diagnosis: Abdominal Pannus Post-Op Diagnosis: Abdominal Pannus I identified the patient and participated in the time-out.: Yes Procedure Operation Date: 11/28/19 07:30 Actual Procedures p Panniculectomy(Not Applicable) - Carolina Metcalf MD Surgeon Carolina Metcalf MD Rn Clinical Trials Soni Webster PA-C Estimated Blood Loss 25 Findings Consistent with Post-Op Diagnosis Specimens Specimen Description: Fresh Specimen: A.) Abdominal Pannus Drains Leal Catheter (16 polish 10ml balloon latex free) and Joao-Yi Drain (x2)
[2019-11-28] MEDS ORDERED: MoRPHine SULFATE 2 MG/ML CARP IV PRN (11:51)
[2019-11-28] MEDS ORDERED: OXYCODONE/ACETAMINOPHEN 5mg/325mg TAB PO PRN (11:51)
[2019-11-28] MEDS ORDERED: DiphenhydrAMINE HCL 50 MG/ML VIAL IV PRN (11:51)
[2019-11-28] MEDS ORDERED: MoRPHine SULFATE 4 MG/ML 1 ML CARP\\VIAL IV PRN ×2 (11:51→12:14)
[2019-11-28] MEDS ORDERED: LORazepam 0.5 MG TAB PO PRN (11:51)
[2019-11-28] MEDS ORDERED: PROMETHAZINE HCL 12.5 MG in SODIUM CHLORIDE 0.9% 50 ML IV PRN (11:51)
[2019-11-28] MEDS: fentaNYL citrate 100 MCG/2 ML VIAL IV PRN ×2 (12:20→12:25)
--- NOTE | 2019-11-28 12:57 | Anesthesiology Progress Note ---
Date of Service November 28, 2019 Anesthesia Post Procedure Vital Signs Vital Signs: Temp Pulse Pulse Resp BP Pulse Ox 11/28/19 12:45 36.4 C L 82 15 132/82 98 11/28/19 12:35 93 H 12 133/87 96 11/28/19 12:25 93 H 17 125/92 96 11/28/19 12:15 36.4 C L 94 H 18 117/92 98 11/28/19 06:36 36.7 C 71 16 121/86 98 Pain Intensity Groin: Pain Intensity: 3 Abdomen: Pain Intensity: 3 Transfer of Care Handoff Completed per policy Notes Mental Status: alert / awake / arousable and participated in evaluation Patient Amnestic to Procedure: Yes Nausea / Vomiting: adequately controlled Pain: adequately controlled Airway Patency, RR, SpO2: stable & adequate BP & HR: stable & adequate Hydration State: stable & adequate Anesthetic Complications: no major complications apparent and Pt Satisfied with anesthetic care
--- NOTE | 2019-11-28 13:13 | Operative Report ---
PG Post Operative Report Pre & Post Diagnosis Operation Date: 11/28/19 07:30 Pre-Op Diagnosis: Abdominal Pannus Post-Op Diagnosis: Abdominal Pannus I identified the patient and participated in the time-out.: Yes Procedure Operation Date: 11/28/19 07:30 Actual Procedures p Panniculectomy(Not Applicable) - Carolina Metcalf MD Surgeon Carolina Metcalf MD Enrichment Director Soni Webster PA-C Estimated Blood Loss 25 Findings Consistent with Post-Op Diagnosis Specimens Abdominal skin and fat to pathology Drains BELEM x2 Anesthesia Type General Complications none Disposition Disposition: Recovery Room Indications 59-year-old male, excess skin of the lower abdomen and pubic region, causing pain and rashes Description of Procedure Risks, benefits, and alternatives of the procedure were explained to the patient who agreed and signed consent. He was identified and marked in the preoperative holding area. he was brought to the operating room where he was positioned supine and placed under general anesthesia without incident. Leal catheter was placed. Surgical site was prepped and draped sterilely. A time-out procedure was perf ormed. I reassessed my markings which included a lower horizontal abdominal incision with the midportion 3 cm above base of the penis. Incision was marked bilaterally to the ASIS. I began by injecting 1% lidocaine with epinephrine along the planned incision. The lower abdominal incision was made using a 15-blade scalpel to incise epidermis and superficial dermis followed by electrocautery to incise deep dermis, subcutaneous fat, Peggy's fascia down to the abdominal wall. Care was taken to bevel superiorly in order to avoid encountering the inguinal region. Electrocautery was first used to elevate the inferior pubic flap leaving some underlying fat in order to avoid entering the inguinal region or disrupting lymphatics. I performed resection of the excess skin of the pubic region by dividing it in the midline, advancing to the anterior flap, and marking 2 triangular flaps for excision. These flaps were incised using a 15 blade scalpel, incision deepened using electrocautery. Tissue was passed off as specimen. Electrocautery was used to elevate the anterior abdominal skin flap ligating the perforating vessels with 3-0 Vicryl ties and electrocautery. Dissection was c arried up to the level of the umbilicus in the midline. Given that the majority of the skin excess was located below the waistline sulcus, panniculectomy was performed infraumbilically only and I did not relocate the umbilicus. A vertical midline incision was then made from the incision midway to the umbilicus and divided in the midline using electrocautery. Hemostasis was assured. Prior to closure, a total of 20 mL of 0.25% Marcaine plain were injected into the fascia as well as along the incisions. At this point, the bed was flexed and the mid portion of the superior skin flap was inset using 2-0 Vicryl suture. Skin flaps were marked for excision. I used a tailor tacking approach to facilitate closure. A 15-blade scalpel was used to make these incisions and the incision was deepened through dermis, subcutaneous fat, Peggy's fat using electrocautery. Subscarpal fat was resected directly. A 15 Yoruba Guillermo drains were placed in the wound bed and brought out through a separate stab incision within the pubic skin. The drains were sutured into place using 3-0 nylon. Wound closure was then begun lateral to medial using 2-0 Vicryl Peggy's fascia sutures, 2-0 Vicryl deep dermal sutures, 2-0 PDO running superficial Quill suture, 3-0 Monocryl running subcuticular suture. The incision was dressed using Dermabond Prineo followed by dry dressings and an abdominal binder. The procedure was tolerated well. The patient was awakened and transferred to recovery in satisfactory condition. Soni Webster PA-C was present and scrubbed throughout the entire procedure and was instrumental in providing retraction of the pannus and assisting in simultaneous wound closure. I attest to the content of the Intraoperative Record and any orders documented therein. Any exceptions are noted below.
[2019-11-28] MEDS: OXYCODONE/ACETAMINOPHEN 5mg/325mg TAB PO PRN ×2 (14:31→19:57)
[2019-11-28] MEDS: D5W AND 1/2NSS + 20MEQ KCL 20 MEQ/1,000 ML BAG IV SCH ×2 (14:31→23:53)
[2019-11-28 14:56] LABS: Creatinine Clr Calc Pharmacy 120.6 ml/min; Est GFR (African American) 99.7; Est GFR (Non-African American) 86.1
--- NOTE | 2019-11-28 15:56 | Surgery Progress Note ---
Date of Service November 28, 2019 Assessment & Plan (1) S/P panniculectomy: POD #0 s/p Panniculectomy. Orlando is doing well. His pain is well-controlled with Percocet. He is tolerating a regular diet. Order for solorio catheter to be removed in AM on 11/29/2019. We reviewed instructions for this evening and when he is discharged home. He is aware that he will be discharged home with drains in place. Tentative plan is for patient to be discharged to home tomorrow. Subjective Orlando is resting comfortably in bed- bed in semi-fowlers position. He reports that his pain is controlled with PO pain medication. He tolerated a regular diet for lunch. He denies any nausea. Reports some mild discomfort from solorio. Overall, he is doing well. Physical Exam Physical Exam: On physical exam-surgical binder in place. BELEM drains x [address] Results & Data Vital Signs (Past 12 Hours) Vital Signs Temp Pulse Pulse Resp BP Pulse Ox 11/28/19 15:25 37.1 C 82 16 112/71 91 11/28/19 14:11 91 H 18 133/80 97 11/28/19 13:05 79 13 125/87 98 11/28/19 12:55 73 12 122/83 98 11/28/19 12:45 36.4 C L 82 15 132/82 98 11/28/19 12:35 93 H 12 133/87 96 11/28/19 12:25 93 H 17 125/92 96 11/28/19 12:15 36.4 C L 94 H 18 117/92 98 11/28/19 06:36 36.7 C 71 16 121/86 98 PG Care Time/CCT Total # of Minutes Spent Total Time Spent with Patient: Total time spent is greater than 50% in coordination of care (as documented) at patient's floor/unit and/or counseling patient: Coding Level of Care Code 51185 Subseq Obs Care Lvl 1 Diagnoses S/P panniculectomy Z98.890
[2019-11-28] MEDS: CEFAZOLIN 2000MG 2,000 MG/15 ML SYR IV SCH ×2 (16:01→23:53)
[2019-11-28] MEDS: RAMELTEON: ORDER AWAITING ACTION SCH ×2 (16:02→23:56)
[2019-11-28] MEDS ORDERED: MELATONIN 3 MG TAB PO SCH (21:00)
[2019-11-29] MEDS: OXYCODONE/ACETAMINOPHEN 5mg/325mg TAB PO PRN ×2 (00:01→07:40)
[2019-11-29] MEDS: RAMELTEON: ORDER AWAITING ACTION SCH (07:38)
--- NOTE | 2019-11-29 08:10 | Surgery Progress Note ---
Date of Service November 29, 2019 Assessment & Plan (1) S/P panniculectomy: D/C solorio now. OK for d/c home after able to void. Will follow-up in office tomorrow. Subjective Patient is resting in semi-grissom position. He has good pain control with Percocet. Tolerating regular diet. Solorio has not been removed. Physical Exam Constitutional: WD/WN, vitals as above Skin: binder in place- removed for exam. drains with appropriate serosang/bloody output. gauze dressing intact without saturation Psychiatric: A+Ox3, euthymic affect Results & Data Vital Signs (Past 12 Hours) Vital Signs Temp Pulse Pulse Resp BP Pulse Ox 11/29/19 07:15 36.8 C 74 16 121/72 96 11/29/19 03:32 36.9 C 81 14 115/72 95 11/28/19 23:40 37.2 C 74 14 109/66 95 PG Care Time/CCT Total # of Minutes Spent Total Time Spent with Patient: Total time spent is greater than 50% in coordination of care (as documented) at patient's floor/unit and/or counseling patient: Coding Level of Care Code None Diagnoses S/P panniculectomy Z98.890
[2019-11-29] MEDS ORDERED: FUROSEMIDE 40 MG TAB PO SCH (09:00)
[2019-11-29] MEDS ORDERED: ENOXAPARIN INJ 40 MG/0.4 ML SYR SQ SCH (09:00)
[2019-11-29] MEDS ORDERED: MULTIVITAMIN TAB PO SCH (09:00)
[2019-11-29] MEDS: D5W AND 1/2NSS + 20MEQ KCL 20 MEQ/1,000 ML BAG IV SCH (10:19)
--- NOTE | 2019-11-29 14:30 | Discharge Summary ---
Date of Service November 29, 2019 Admission HPI Per Admitting Provider see admission H&P Admission Exam Per Admitting Provider see admission H&P Principal Diagnosis abdominal pannus Discharge Exam Constitutional WD/WN, vitals as above Skin binder in place, removed, gauze dressing without saturation. drains with appropriate serosang/bloody output Psychiatric A+Ox3, euthymic affect Discharge Data Allergies Allergy/AdvReac Type Severity Reaction Status Date / Time No Known Allergies Allergy Unknown Verified 11/28/19 06:28 Procedures Performed Operation Date: 11/28/19 07:30 Actual Procedures p Panniculectomy(Not Applicable) - Carolina Metcalf MD Hospital Course (1) S/P panniculectomy: Patient [facility] with history of abdominal pannus. Matthew was taken to the OR and underwent panniculectomy. There were no intraoperative complications. Matthew was taken to recovery and transferred to med/surg for observation. On POD#1, he was feeling well. he was tolerating a regular diet and ambulating. He was able to void after catheter was removed. On exam, his vitals were stable. His incisions were CDI. His drains had appropriate output. He was discharged home with instructions to follow-up in the office in one day. Total Time Total Time Spent Total Time Spent (In Minutes): 15 Total Time Includes: Examination of the Patient, Discharge Planning and Medication Reconciliation Discharge Plan Discharge Items Patient Disposition: Home - Self-Care Reason For Visit: Abdominal Pannus Discharge Diagnosis: Abdominal Pannus Activity: As commented below Non-emergency contact: Surgeon Call non-emergency contact if: you have any medication questions, your pain is not controlled, your temperature is above 101.5, your wound has increased redness and your wound has increased drainage Follow-up/Referrals: Elsi Palafox DO [Primary Care Provider] - Diet: Regular Addtl Attending Provider Instructions: ACTIVITY RECOMMENDATIONS: __Normal activities _X_No bending, lifting or straining __No driving _X_Driving allowed when you are off pain medications _X_Walking permitted __You should have help at home for ___ days DRESSINGS: __No dressings required _X_Keep dressings dry/in place until first office visit __Remove dressings ___ and leave dressings off __Apply ice ___ days __Remove dressings and reapply garment __Apply antibiotic ointment (Bacitracin, Neosporin, etc) to wounds 3-4 times/day for 10 days BATHING: _X_Keep dressings dry _X_Sponge bathing permitted, but please keep surgical dressings dry. __Showering permitted _X_No swimming, hot tubs or soaking in a tub MEDICATIONS: Resume previous medications unless instructed otherwise by your surgeon. _X_Do not use aspirin, Motrin, Advil or Ibuprofen as these may promote bleeding. Please use Tylenol. _X_Prescription(s) provided: Prescription for pain medication provided at last office visit. Please use as prescribed. OTHER INSTRUCTIONS: _X_Record drain output 2-3 times per day SPECIAL CARE INSTRUCTIONS: * It is normal to have a mild fever after surgery. If your temperature is higher than 101.5 degrees F, please call the office at [phone]. * Constipation is a typical side effect of pain medication. An over-the- counter stool softener will help relieve this. * Leaking around surgical drains may occur and should not cause concern. Sometimes these drains become clogged. If this happens, remove the bulb and milk the clot out of the tube, then replace the bulb. * Drainage from wounds after liposuction is normal and should be expected. Garments will become soiled. You should protect furniture and bedding. This drainage should mostly subside within 2-3 days. Leave garments in place unless instructed to remove them. * If you have unusual drainage from a wound or are concerned you have an infection or have any questions or concerns, please call the office at [phone]. FOLLOW UP VISIT: If not already scheduled, please call the office, , when you return home after surgery to schedule an appointment to be seen in __1_ days. Pending Studies at Discharge: No Stand-Alone Forms: [facility], Opioid Pain Management Medications and DC Order Prescriptions: Continued oxycodone-acetaminophen [Endocet] 5-325 mg tablet 1 tab PO Q4H PRN (Reason: pain) Qty: 18 RF: 0 furosemide 40 mg Tablet 40 mg PO QAM RF: 0 ascorbic acid (vitamin C) [Vitamin C] 1,000 mg Tablet 500 mg PO QAM RF: 0 potassium chloride 10 mEq Capsule, Extended Release 10 meq PO UD RF: 0 minocycline 100 mg Capsule 100 mg PO QAM RF: 0 cyanocobalamin (vitamin B-12) [Vitamin B-12] 500 mcg Tablet 500 mcg PO QAM RF: 0 ferrous sulfate [iron] 325 mg (65 mg iron) Tablet 325 mg PO QAM RF: 0 multivitamin Capsule 1 cap PO QAM RF: 0 magnesium 200 mg Tablet 200 mg PO QAM RF: 0 Calcium 600 + D(3) 600 mg calcium- 200 unit Capsule 1 cap PO QAM RF: 0 ramelteon [Rozerem] 8 mg Tablet 8 mg PO HS RF: 0 melatonin 10 mg Tablet 10 mg PO HS RF: 0 zinc 50 mg Tablet 50 mg PO QAM RF: 0 Linzess 145 mcg Capsule 145 mcg PO DAILY PRN (Reason: Constipation) RF: 0 Discontinued vitamin E 1,000 unit Capsule 1,000 unit PO QAM RF: 0 aspirin 81 mg Tablet,Chewable 81 mg PO QAM RF: 0 celecoxib [Celebrex] 100 mg Capsule 100 mg PO QAM RF: 0 omega 8-yyf-rva-fish oil [Fish Oil] 1,000 mg (120 mg-180 mg) Capsule 1 cap PO QAM RF: 0 [place] 3-6-9 1,200 mg Capsule 1 cap PO QAM RF: 0 turmeric 400 mg Capsule 800 mg PO QAM RF: 0 Discharge Orders: Discharge Order (Routine); Ordered 11/29/19 Ordered By: Quynh Shirley/Other Patient Handouts: Discharge Instructions Caring for Your Joao P ratt Drainage Tube Admission Data Admit Date/Time: 11/28/19 12:43 Attending Provider: Carolina Metcalf Admit Provider: Carolina Metcalf Primary Care Provider: Elsi Palafox Other Interventions: Discharge Summary Assessment (RN) Last Done: 11/29/19 09:46 DC Date/Time DO NOT enter until pt leaves facility: 11/29/19 12:45 Coding Level of Care Code D/C Day Management <30 mins Diagnoses S/P panniculectomy Z98.890
== END 2019-11-29 12:45 | disposition home or self-care (01) ==
LOC: 3N 06:04 → ASU 06:04

== ENCOUNTER 2020-10-02 05:18 | Observation (INO) ==
--- NOTE | 2020-09-10 15:05 | PAT Medication Instructions ---
Medication Instructions Date of Service September 10, 2020 Home Medications Linzess 145 mcg PO DAILY PRN ascorbic acid (vitamin C) [Vitamin C] 1,000 mg PO QAM cyanocobalamin (vitamin B-12) [Vitamin B-12] 500 mcg PO QAM ferrous sulfate [iron] 325 mg PO QAM furosemide 40 mg PO QAM melatonin 10 mg PO HS minocycline 100 mg PO QAM zinc 50 mg PO QAM aspirin 81 mg PO QAM omega-3 fatty acids-fish oil 2 cap PO QAM calcium 500 mg PO QAM cholecalciferol (vitamin D3) [Vitamin D3] 25 mcg PO QAM multivitamin 1 tab PO QAM temazepam 30 mg PO HS vitamin E 400 unit PO QAM Continue as directed minocycline 100 mg PO QAM STOP taking 2 weeks before surgery vitamin E 400 unit PO QAM omega-3 fatty acids-fish oil 2 cap PO QAM DO NOT take the morning of surgery Linzess 145 mcg PO DAILY PRN ascorbic acid (vitamin C) [Vitamin C] 1,000 mg PO QAM cyanocobalamin (vitamin B-12) [Vitamin B-12] 500 mcg PO QAM ferrous sulfate [iron] 325 mg PO QAM furosemide 40 mg PO QAM zinc 50 mg PO QAM calcium 500 mg PO QAM cholecalciferol (vitamin D3) [Vitamin D3] 25 mcg PO QAM multivitamin 1 tab PO QAM Take morning of surgery With a small sip of water, OTHERWISE NOTHING TO EAT OR DRINK AFTER MIDNIGHT: aspirin 81 mg PO QAM Take evening before surgery Linzess 145 mcg PO DAILY PRN (if needed) melatonin 10 mg PO HS temazepam 30 mg PO HS Other Notes If you have any questions please call us at [phone] or [phone] or [phone] or [phone]
--- NOTE | 2020-09-12 15:07 | Anesthesiology Consultation ---
Date of Service September 12, 2020 Assessment & Plan (1) Encounter for pre-operative examination: Chart Review Chart Review: Acceptable Risk for Surgery (pending surgeon ordered PCP clearance scheduled 09/25) and Patient seen in Pre Admission Testing Awaiting surgeon ordered PCP clearance scheduled 09/25/20 Left foot amputation- has left foot prosthesis- follows routinely with podiatry. Pt feels that he should have any issues with rehab for right TKA on the left LE. Per PAT appointment September 12, 2020, patient denies any recent travel or large group gatherings/activities. No known Covid infection in the past 90 days. No known Covid positive contacts or Covid related symptoms. Educated patient to follow up with surgeon's office regarding Covid testing. Educated on importance of self quarantining, social distancing and wearing mask in public both for the patient and household contacts. Teaching & Discussion Pre-Anesthesia Teaching/Discussion Notes: Instructed NPO after midnight before surgery,except medications with 15 cc of water. Medication instructions provided according to the PAT guidelines. History Surgery Operation Date: 10/02/20 07:00 Proposed Procedures p Right Total Knee Arthroplasty - Miquel Tillman MD Height/Weight Height: 6 ft 3 in Weight: 140.5 kg Allergies Allergy/AdvReac Type Severity Reaction Status Date / Time codeine AdvReac Intermediate heartburn Verified 09/10/20 08:07 hydromorphone [From Dilaudid] AdvReac Intermediate heartburn Verified 09/10/20 08:07 Medications Home Medications Medication Instructions Recorded Confirmed Last Taken Linzess 145 mcg PO DAILY PRN 11/18/19 09/10/20 Unknown ascorbic acid (vitamin C) [Vitamin 1,000 mg PO QAM 11/18/19 09/10/20 11/27/19 09:00 C] cyanocobalamin (vitamin B-12) 500 mcg PO QAM 11/18/19 09/10/20 11/27/19 09:00 [Vitamin B-12] ferrous sulfate [iron] 325 mg PO QAM 11/18/19 09/10/20 11/27/19 09:00 furosemide 40 mg PO QAM 11/18/19 09/10/20 11/27/19 09:00 melatonin 10 mg PO HS 11/18/19 09/10/20 11/26/19 22:00 minocycline 100 mg PO QAM 11/18/19 09/10/20 11/27/19 09:00 zinc 50 mg PO QAM 11/18/19 09/10/20 11/27/19 09:00 aspirin 81 mg PO QAM 12/19/19 09/10/20 Unknown omega-3 fatty acids-fish oil 2 cap PO QAM 12/19/19 09/10/20 Unknown calcium 500 mg PO QAM 09/10/20 09/10/20 Unknown cholecalciferol (vitamin D3) 25 mcg PO QAM 09/10/20 09/10/20 Unknown [Vitamin D3] multivitamin 1 tab PO QAM 09/10/20 09/10/20 Unknown temazepam 30 mg PO HS 09/10/20 09/10/20 Unknown vitamin E 400 unit PO QAM 09/10/20 09/10/20 Unknown Past Medical History Medical History Depression with anxiety no medications History of COVID-19 06/07/20 (SYMPTOMS>FATIGUE, CHILLS) SYMPTOMS HAVE SINCE RESOLVED - FEELING WELL History of esophageal stricture STRETCHING REQUIRED- NO CURRENT ISSUES Insomnia Obesity Osteoarthritis Rosacea Spinal stenosis Exercise / Class Metabolic Activity II 4-5 Yardwork/Stairs/Walk up hill (one flight of stairs - no chest pain or SOB ) Past Family History Family History Mother Heart disease Father Parkinson's disease Other No family history of adverse response to anesthesia Past Surgical History Surgical History Fatty tumor REMOVED FROM SHOULDER History of cholecystectomy (~02/1992) History of colonoscopy History of esophagogastroduodenoscopy (EGD) History of gastric bypass (~05/2008) History of left hip replacement (~05/2016) History of right hip replacement (~05/2009) History of surgery 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) "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" History of tooth extraction Hx of lumbar discectomy S/P panniculectomy POST OP INFECTION (REQUIRING WOUND VAC/PACKED WOUND FROM HOME NURSING 11/2009) 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 No recent snoring Patient denies chest pain, shortness of breath, dyspnea on exertion, reflux, cough, wheezing, palpitations. No hx of seizures, stroke, ND. No hx of blood clots or blood transfusions Physical Exam Vital Signs VITALS BP 117/77 P 66 TEMP 98.8 SP02 96% RESP 16 Constitutional no acute distress ENMT Mouth: no TMJ clicking Thyromental Distance: > or= 3.5 Finger Breadths (4.0) Mallampati Class: II Partial plate to top Missing molars Neck neck extension not limited Respiratory normal respiratory effort; no respiratory distress Auscultation: lungs clear to auscultation bilaterally; no wheezes Cardiovascular Rate/Rhythm: regular rate and regular rhythm Heart Sounds: no murmur Vessels: no carotid bruit Musculoskeletal Spine: no pain with cervical ROM Extremities: extremities normal to inspection Psychiatric Orientation: alert Testing Laboratory Results 09/12/20 15:33 09/12/20 15:33 PT 9.3 Seconds (9.0-12.0) 09/12/20 15:33 INR 0.9 (0.9-1.1) 09/12/20 15:33 APTT 25.9 Seconds (21.0-31.0) 09/12/20 15:33 Blood Type O Negative 09/12/20 15:33 Antibody Screen NEGATIVE 09/12/20 15:33 Electrocardiogram Date: 12/19/19 SR with PVCs at 84bpm. Otherwise normal EKG per cardio. Chest X-Ray Date: 09/12/20 The heart remains normal in size. There is stable minor elevation left hemidiaphragm. There is stable interstitial thickening. There is no lobar consolidation. Increased density in the left suprahilar region, remain similar to the prior study and likely represents a summation with anterior costochondral junction. There is no corresponding lesion on the lateral view to indicate a parenchymal mass
[2020-09-12 15:44] LABS: Basophils # (auto) 0.05 K/uL (0-0.2); Basophils % (auto) 0.7 %; Eosinophils # (auto) 0.35 K/uL (0-0.5); Eosinophils % (auto) 4.6 %; Hematocrit (blood only) 39.9 % (42-52); Hemoglobin 13.3 g/dL (14.0-18.0); Immature Granulocytes # (auto) 0.01 K/uL (0.00-0.02); Immature Granulocytes % (auto) 0.1 %; Lymphocytes # (auto) 2.41 K/uL (1.2-3.4); Lymphocytes % (auto) 31.8 %; Mean Corpuscular Hemoglobin 29.4 pg (25-34); Mean Corpuscular Hgb Conc 33.3 g/dL (32-36); Mean Corpuscular Volume 88.1 fL (80-100); Mean Platelet Volume 9.7 fL (7.4-10.4); Monocytes # (auto) 0.74 K/uL (0.11-0.59); Monocytes % (auto) 9.8 %; Neutrophils # (auto) 4.02 K/uL (1.4-6.5); Platelet Count 294 K/uL (130-400); RDW Coefficient of Variation 14.3 % (11.5-14.5); RDW Standard Deviation 46.3 fL (36.4-46.3); Red Blood Count 4.53 M/uL (4.7-6.1); White Blood Count 7.58 K/uL (4.8-10.8)
--- NOTE | 2020-09-12 15:54 | XRay Report ---
XR chest Pre-admission PA/Lat CLINICAL HISTORY: Preoperative chest COMPARISON STUDY: 12/19/2019 FINDINGS: The heart remains normal in size. There is stable minor elevation left hemidiaphragm. There is stable interstitial thickening. There is no lobar consolidation. Increased density in the left durand prahilar region, remain similar to the prior study and likely represents a summation with anterior co stochondral junction.[There is no corresponding lesion on the lateral view to indicate a parenchymal mass. Degenerative changes are present within the spine with prominent anterior osteophytes. IMPRESSION: 1. Mild chronic interstitial thickening 2. Nonspecific increased density within left suprahilar region, similar to the prior study, and stati stically secondary to a summation with costochondral junction. ACT 112: Negative or not required by law. Electronically signed by: Bernabe Garcias M.D. 09/12/2020 3:52 PM
[2020-09-12 15:57] LABS: INR 0.9 (0.9-1.1); Partial Thromboplastin Time 25.9 Seconds (21.0-31.0); Prothrombin Time 9.3 Seconds (9.0-12.0)
[2020-09-12 16:02] LABS: Calcium 8.4 mg/dl (8.5-10.1); Creatinine Clr Calc Pharmacy 120.6 ml/min; Est GFR (African American) 97.8; Est GFR (Non-African American) 84.4; Potassium 4.5 mmol/L (3.5-5.1)
[2020-10-02] MEDS ORDERED: GABAPENTIN 600 MG DOSE PO SCH (06:00)
[2020-10-02] MEDS ORDERED: ACETAMINOPHEN 500 MG TAB PO SCH (06:00)
[2020-10-02] MEDS ORDERED: dexAMETHasone 4 MG TAB PO SCH (06:00)
[2020-10-02] MEDS ORDERED: traMADol HCL 50 MG TABLET PO SCH (06:00)
[2020-10-02] MEDS ORDERED: ROPIVACAINE 0.5% HCL/PF 150 MG, BUPIVACAINE 0.75% MPF 20 ML, EPINEPHrine 0.15 MG, Ketor... INFIL SCH (06:00)
[2020-10-02] MEDS ORDERED: LR 60ML/HR IV SCH (06:00)
[2020-10-02] MEDS ORDERED: oxyCODONE HCL 10 MG TABCR (OxyCONTIN) PO SCH (06:00)
[2020-10-02] MEDS ORDERED: LR 500ML BOLUS, THEN 15ML/HR IV SCH (06:00)
[2020-10-02] MEDS ORDERED: CeleBREX 200 MG CAP PO SCH (06:00)
[2020-10-02] MEDS ORDERED: METOCLOPRAMIDE HCL 10 MG TABLET PO SCH (06:00)
[2020-10-02] MEDS ORDERED: TRANEXAMIC ACID 1,000 MG **IV Pre-op IV SCH (06:00)
[2020-10-02] MEDS ORDERED: cloNIDine HCL 0.1 MG/24 HR TRANSDERM SYS TD SCH (06:00)
[2020-10-02] MEDS ORDERED: FAMOTIDINE 20 MG TAB PO SCH (06:00)
[2020-10-02] MEDS ORDERED: TRANEXAMIC ACID 1,000 MG **IV Intra-op IV SCH (06:00)
[2020-10-02] MEDS ORDERED: BUPIVACAINE 0.5 % 5 MG/1 ML PF 10ML VIAL ONE (06:19)
[2020-10-02] MEDS ORDERED: ROPIVACAINE 0.5% 5 MG/ML 30 ML VIAL ONE (06:20)
--- NOTE | 2020-10-02 06:39 | History & Physical Bridge Note ---
Date of Service October 02, 2020 History & Physical Bridge Note I have examined the patient, reviewed the History & Physical and in the interval since the performance of the History & Physical I have noted the following changes of clinical significance: no changes noted
[2020-10-02] MEDS ORDERED: ORTHO JOINT ANESTHETIC ONE (06:41)
[2020-10-02] MEDS ORDERED: MIDAZOLAM HCL 1 MG/ML 2ML VIAL ONE ×2 (06:44)
[2020-10-02] MEDS ORDERED: ATROPINE SULFATE 0.1 MG/ML 10ML SYR IV PRN (07:06)
[2020-10-02] MEDS ORDERED: ePHEDrine sulfate 50 MG/ML AMP IV PRN (07:06)
[2020-10-02] MEDS ORDERED: fentaNYL citrate 100 MCG/2 ML VIAL IV PRN (07:06)
[2020-10-02] MEDS ORDERED: KETAMINE 50 MG/5 ML SYRINGE ONE (07:12)
[2020-10-02] MEDS ORDERED: fentaNYL citrate 100 MCG/2 ML VIAL ONE (08:10)
[2020-10-02] MEDS ORDERED: PHENYLEPHRINE 100MCG/ML 5ML SYR ONE (08:12)
[2020-10-02] MEDS ORDERED: PROPOFOL IV EMULSION 10 MG/ML 20 ML VIAL IV ONE ×2 (08:12→09:22)
[2020-10-02] MEDS ORDERED: ONDANSETRON INJ 2 MG/ML 2 ML VIAL ONE (08:12)
[2020-10-02] MEDS ORDERED: ePHEDrine sulfate 50 MG/ML SYR ONE (08:12)
--- NOTE | 2020-10-02 10:21 | Operative Report ---
Post Operative Report Pre & Post Diagnosis Operation Date: 10/02/20 07:00 Pre-Op Diagnosis: Right Knee Osteoarthritis Post-Op Diagnosis: Right Knee Osteoarthritis I identified the patient and participated in the time-out.: Yes Procedure Operation Date: 10/02/20 07:00 Actual Procedures p Right Total Knee Arthroplasty(Right) - Miquel Tillman MD Surgeon Miquel Tillman MD Television Director Jacinda Farr physicians environmental assistant Estimated Blood Loss 5 Findings Consistent with Post-Op Diagnosis Specimens Bone and soft tissue Drains None Anesthesia Type MAC Spinal Regional Complications none Disposition Accompanied Patient To Recovery: No Disposition: Recovery Room Indications [place] is 60. He has severe right knee pain refractory to nonsurgical methods of management. His pain is secondary to osteoarthritis. After discussion of appropriate treatment alternatives risks and benefits he has elected to proceed with a right knee replacement. Description of Procedure Informed consent obtained. Patient identified. He identified the operative site as the right knee. I marked with my initials. A preoperative surgical timeout was performed. A preop dose of IV antibiotics and TXA was given. He was positioned supine on the OR table with a padded post under the right calf and a tourniquet on the right thigh. Leg was prepped and draped in the usual sterile fashion. DVT prophylaxis with foot pump on the contralateral leg and postoperatively with early mobility mechanical devices and Lovenox. The examination under anesthesia revealed range of motion 0/7/110. The knee was stable. There was trace MCL laxity 1+ LCL laxity. No effusion. Limb exsanguinated with the Esmarch. Tourniquet inflated to 250 mmHg. A midline longitudinal incision was made followed by medial parapatellar arthrotomy. Soft tissue on the anterior aspect of the distal femur was resected. The synovial reflection in the lateral gutter was released. The retropatellar fat pad was resected and a medial release was performed. The knee was flexed and the patella everted. The cruciate ligaments were resected. That is the PCL as the ACL was absent. There were large osteophytes along the femur tibia and patella which were all removed. There was substantial sclerosis and eburnation in the medial compartment over the entire weightbearing area with some medial bony erosion on the tibia. Large osteophytes medially were removed. There was grade 2 and 3 chondrosis throughout the patella with substantial marginal osteophytes necessitating a patellar replacement. The knee was able to be subluxated and the meniscal remnants were removed. The lateral meniscus was intact and the lateral compartment looked relatively normal. The medial compartment showed a deficient medial meniscus and its remnants were removed. Osteophytes on the medial side removed as well. A tugboat pilot hole was drilled into the tibia this was just in front of and between the tibial spines. The intramedullary alignment tammy was inserted. It was aligned to the tibial tubercle and set to take 10 off the high side and corresp ondingly for off of the low side. The low side was medial. The guide was pinned into place and the extra medullary alignment tammy was utilized to confirm slope and alignment both of which were good. This cut was made and sized to a 5. The knee was flexed and a tugboat pilot hole was drilled into the distal femur just above the PCL. I was prepared to use some radiographs to determine alignment if I cannot seat the tammy fully. Also I placed the markers over the femoral head. The guide was set to resect 14 mm because of the flexion contracture and to do this at a 7 degree valgus angle based upon preoperative templating. The guide was pinned into place and the alignment was assessed using the extra medullary alignment tammy confirming the appropriate anatomical and mechanical axes. The guide tammy was almost able able to be buried up completely even though the patient did have a total hip in place. The collateral ligaments were protected and the resection was distal to them. This cut was made. The extension gap was a tight 8. It looked tight more posterior as well. I went ahead and then recut the tibia using a 3 degree posterior slope block and taking 2 more millimeters. This resulted in a symmetric 10 mm extension gap with no laxity and full extension. The distal femoral sizing block was then applied and sized to a 6. The external rotation drill holes were made which matched the epicondylar axis which had been marked. Subsequent to that the distal femoral cutting block was applied. Previously a very large osteophyte under the MCL was removed. The collateral ligaments were protected and the size 6 anterior down cutting block was applied into place and the cuts were made anterior posterior chamfers. Posterior medial osteophyte removed. Lateral osteophyte not present. Box cutting guide applied and lateralized to the lateral cortical margin of the femur pinned in place and cut. This was then beveled with rasp as necessary. The trial was applied and fit well. Attention was turned to the tibia which was prepared with the drill and punch. Sclerotic bone was drilled on the patella and tibia as encountered. The patella measured 30 mm in thickness. The guide was set to preserve nineteen 441 mm 3 peg oval dome patella. The paddle was applied and the cut was made leaving a 19 mm residual patella. This was then prepared aligning the paddle to the axis of the knee with the knee in slight flexion so that the patella is engaged. Subsequently the lug holes were drilled and some remaining lateral cartilage removed. Osteophytes removed. The patella tracked well with no hands technique. The trial components were removed from the knee and the bony surfaces were meticulously prepared with pulsatile lavage and dried. The canals were plugged and Ortho joint mix was injected in the back of the knee. 2 bags of Simplex P cement were mixed and then while in a doughy state the femur tibia and patella were cemented in to place with the knee held in full extension until cement had hardened. At that point after 128 minutes of tourniquet time the tourniquet was let down meticulous hemostasis was performed and the additional dose of TXA was given. The knee had no laxity at full extension and at 90 degrees. Composite patellar thickness was 30 mm. Sheldon assisted flexion with extensor mechanism closed was 120 degrees. There was trace MCL laxity and 1+ LCL laxity in mid position. I elected to proceed with the final 10 mm implant. The back of the knee was inspected for cement and removed as encountered. The back of the knee was irrigated and the final polywas inserted. The extensor mechanism was closed with interrupted #2 FiberWire above the equator the patella and running and interrupted #1 Vicryl below. The skin was then closed in layers with 0 and 2-0 Vicryl and fredy on the skin. The leg was cleaned with wet and dry sponges and a bulky soft sterile dressing was applied including Xeroform 4 x 4's ABD and a full-length Carlos wrap. Patient was taken recovery room in stable condition. There were no complications. The resected bone and soft tissue was sent for specimen. Counts were correct and blood loss is estimated to be 5 cc. At the conclusion of the operation spoke the patient's and informed her of my findings. The plan will be for hopeful overnight stay with physical therapy per protocol. Lovenox for DVT prop hylaxis. Components inserted with a J[employer] PFC Sigma rotating platform knee size 6 right posterior stabilized femur a size 5 mobile-bearing keeled tibial tray with a 10 mm size 6 polyethylene insert posterior stabilized. A 41 mm 3 peg oval dome patella. An extensile medial release was performed. Medial and posterior medial osteophytes were removed. Superficial and deep MCL released as a part of the medial soft tissue sleeve. Lateral middle geniculate vessels cauterized. I attest to the content of the Intraoperative Record and any orders documented therein. Any exceptions are noted below.
[2020-10-02] MEDS ORDERED: ONDANSETRON INJ 2 MG/ML 2 ML VIAL IV PRN (11:20)
[2020-10-02] MEDS ORDERED: MoRPHine SULFATE 4 MG/ML 1 ML CARP\\VIAL IV PRN (11:20)
[2020-10-02] MEDS ORDERED: MAGNESIUM HYDROXIDE SUSP 30 ML UDC PO PRN (11:20)
[2020-10-02] MEDS ORDERED: METOCLOPRAMIDE HCL INJ 5 MG/ML 2 ML VIAL IV PRN (11:20)
[2020-10-02] MEDS ORDERED: TAMSULOSIN HCL 0.4 MG CAP PO PRN (11:20)
[2020-10-02] MEDS ORDERED: MoRPHine SULFATE 2 MG/ML CARP IV PRN (11:20)
[2020-10-02] MEDS ORDERED: bisacodyL 10 MG SUPP PR PRN (11:20)
[2020-10-02] MEDS ORDERED: NALOXONE HCL 0.4 MG/1 ML VIAL/CARP IV PRN (11:20)
[2020-10-02] MEDS ORDERED: oxyCODONE HCL IR 5 MG TAB (IMMEDIATE RELEASE) PO PRN (11:20)
--- NOTE | 2020-10-02 11:28 | XRay Report ---
XR knee RT 1 or 2V routine CLINICAL HISTORY: Postop study. Osteoarthritis the right knee. COMPARISON: 09/28/2020 DISCUSSION: There are postsurgical changes of a total right knee arthroplasty and patellar resurfacin g. There are overlying skin fredy. The femoral and tibial components appear well seated. There is g as present within the soft tissues consistent with recent surgery. IMPRESSION: Postsurgical changes of a total right knee arthroplasty and patellar resurfacing. ACT 112: Negative or not required by law. Electronically signed by: Bernabe Garcias M.D. 10/02/2020 11:27 AM
--- NOTE | 2020-10-02 11:30 | Operative Report ---
Post Operative Report Pre & Post Diagnosis Operation Date: 10/02/20 07:00 Pre-Op Diagnosis: Right Knee Osteoarthritis Post-Op Diagnosis: Right Knee Osteoarthritis I identified the patient and participated in the time-out.: Yes Procedure Operation Date: 10/02/20 07:00 Actual Procedures p Right Total Knee Arthroplasty(Right) - Miquel Tillman MD Surgeon Miquel Ayala MD Product Marketing Engineer Jacinda Valdes physicians certified pathology assistant Estimated Blood Loss 5 Findings Consistent with Post-Op Diagnosis Specimens bone cuts Anesthesia Type Spinal MAC Complications none Disposition Accompanied Patient To Recovery: Yes Disposition: Recovery Room Description of Procedure As per Dr. Tillman's note I assisted in prepping and draping, instruments handling, certain parts of the procedure and wound closure. I attest to the content of the Intraoperative Record and any orders documented therein. Any exceptions are noted below.
[2020-10-02] MEDS ORDERED: LINACLOTIDE 145 MCG CAPSULE PO PRN (11:44)
--- NOTE | 2020-10-02 11:57 | Anesthesiology Progress Note ---
Date of Service October 02, 2020 Anesthesia Post Procedure Vital Signs Vital Signs: Temp Pulse Pulse Pulse Resp BP BP 10/02/20 11:34 36.3 C L 86 16 117/72 10/02/20 11:05 36.5 C 88 16 114/75 10/02/20 10:55 88 14 121/72 10/02/20 10:45 36.3 C L 93 H 14 122/86 10/02/20 10:35 89 14 114/83 10/02/20 10:28 36.1 C L 92 H 14 119/82 10/02/20 05:44 37.2 C 80 18 139/87 Pulse Ox 10/02/20 11:34 94 10/02/20 11:05 94 10/02/20 10:55 100 10/02/20 10:45 99 10/02/20 10:35 100 10/02/20 10:28 99 10/02/20 05:44 97 Pain Intensity Right Knee: Pain Intensity: 0 Transfer of Care Handoff Completed per policy Notes Mental Status: alert / awake / arousable and participated in evaluation Patient Amnestic to Procedure: Yes Nausea / Vomiting: adequately controlled Pain: adequately controlled Airway Patency, RR, SpO2: stable & adequate BP & HR: stable & adequate Hydration State: stable & adequate Neuraxial Anesthesia: was administered and sensory block is resolving Anesthetic Complications: no major complications apparent
[2020-10-02] MEDS: KETOROLAC 30 MG/ML VIAL IV SCH ×3 (12:11→23:22)
[2020-10-02] MEDS: SODIUM CHLORIDE 0.9% 1000ML 1,000 ML IV SCH ×2 (12:11→22:21)
[2020-10-02] MEDS: CHECK CLONIDINE PATCH PLACEMENT SCH ×4 (12:12→23:24)
[2020-10-02] MEDS: ACETAMINOPHEN 500 MG TAB PO SCH ×2 (13:39→22:19)
[2020-10-02] MEDS: ceFAZolin 2000MG 2,000 MG/15 ML SYR IV SCH ×2 (14:25→23:22)
--- NOTE | 2020-10-02 16:16 | Orthopedic Progress Note ---
Date of Service October 02, 2020 Assessment & Plan (1) Status post total right knee replacement: POD 0 - right total knee arthroplasty today with Dr. Tillman Patient doing well. Allowed OOB - WBAT RLE with knee immobilizer on when out of bed. Ice to right knee PRN PT/OT to start tomorrow morning. Case management for disposition - patient would like to go home with home health. Pain medication as ordered Zofran PRN nausea Regular diet continue home medications Will start Lovenox 30mg BID tonight for DVT prophylaxis. SCD's and TEDS also Will re-eval in AM. Will discuss findings with Dr. Tillman. Admission and Anticipated Discharge Date Admission Date: October 02, 2020 Subjective Patient is doing well after surgery. Resting in bed, arousable. tolerating regular diet. States that he does not have any nausea or vomiting. He had some nausea during surgery and was given something for it. Denies any pain. Chronic numbness in right foot. States that he thinks his feeling is back to normal. Physical Exam Physical Exam: Dressings intact right lower extremity. Strength 5/5 with dorsiflexion and plantarflexion. Dorsalis pedis and posterior tibial pulse 1+. Distal sensation diminished but seems back to normal. Results & Data ([facility]) Vital Signs (Past 12 Hours) Vital Signs Temp Pulse Pulse Pulse Resp BP BP 10/02/20 14:46 36.4 C L 74 16 107/72 10/02/20 14:10 36.5 C 73 16 117/75 10/02/20 13:05 36.4 C L 80 16 115/74 10/02/20 12:08 36.5 C 80 16 113/72 10/02/20 11:34 36.3 C L 86 16 117/72 10/02/20 11:05 36.5 C 88 16 114/75 10/02/20 10:55 88 14 121/72 10/02/20 10:45 36.3 C L 93 H 14 122/86 10/02/20 10:35 89 14 114/83 10/02/20 10:28 36.1 C L 92 H 14 119/82 10/02/20 05:44 37.2 C 80 18 139/87 Pulse Ox 10/02/20 14:46 95 10/02/20 14:10 94 10/02/20 13:05 95 05/11/21 12:08 93 10/02/20 11:34 94 10/02/20 11:05 94 10/02/20 10:55 100 10/02/20 10:45 99 10/02/20 10:35 100 10/02/20 10:28 99 10/02/20 05:44 97 Diagnostic Findings XR knee RT 1 or 2V routine CLINICAL HISTORY: Postop study. Osteoarthritis the right knee. COMPARISON: 09/28/2020 DISCUSSION: There are postsurgical changes of a total right knee arthroplasty and patellar resurfacing. There are overlying skin fredy. The femoral and tibial components appear well seated. There is gas present within the soft tissues consistent with recent surgery. IMPRESSION: Postsurgical changes of a total right knee arthroplasty and patellar resurfacing.
[2020-10-02] MEDS ORDERED: SENNA 8.6 MG TAB PO SCH (21:00)
[2020-10-02] MEDS ORDERED: TEMAZEPAM 15 MG CAPSULE PO SCH (22:00)
[2020-10-02] MEDS ORDERED: MELATONIN 3 MG TAB PO SCH (22:00)
[2020-10-02] MEDS: DOCUSATE SODIUM 100 MG CAP PO SCH (22:21)
[2020-10-02] MEDS: ENOXAPARIN INJ 30 MG/0.3 ML SYR SQ SCH (22:21)
[2020-10-03] MEDS: traMADol HCL 50 MG TABLET PO PRN ×2 (04:19→10:15)
[2020-10-03 06:20] LABS: Hematocrit (blood only) 34.6 % (42-52); Hemoglobin 11.5 g/dL (14.0-18.0); Mean Corpuscular Hemoglobin 29.7 pg (25-34); Mean Corpuscular Hgb Conc 33.2 g/dL (32-36); Mean Corpuscular Volume 89.4 fL (80-100); Mean Platelet Volume 9.3 fL (7.4-10.4); Platelet Count 283 K/uL (130-400); RDW Coefficient of Variation 13.9 % (11.5-14.5); RDW Standard Deviation 45.7 fL (36.4-46.3); Red Blood Count 3.87 M/uL (4.7-6.1); White Blood Count 11.03 K/uL (4.8-10.8)
[2020-10-03] MEDS: ACETAMINOPHEN 500 MG TAB PO SCH (06:20)
[2020-10-03] MEDS: KETOROLAC 30 MG/ML VIAL IV SCH (06:21)
[2020-10-03 06:53] LABS: BUN Creatinine Ratio 17.6 (10-20); Calcium 8.3 mg/dl (8.5-10.1); Creatinine Clr Calc Pharmacy 128.8 ml/min; Est GFR (African American) 106.2; Est GFR (Non-African American) 91.6; Potassium 4.4 mmol/L (3.5-5.1)
[2020-10-03] MEDS ORDERED: dexAMETHasone 4 MG TAB PO SCH (08:00)
[2020-10-03] MEDS: CHECK CLONIDINE PATCH PLACEMENT SCH (08:19)
[2020-10-03] MEDS: DOCUSATE SODIUM 100 MG CAP PO SCH (08:22)
[2020-10-03] MEDS ORDERED: ASCORBIC ACID 500 MG TAB PO SCH (09:00)
[2020-10-03] MEDS ORDERED: ASPIRIN 81 MG ECTAB PO SCH (09:00)
[2020-10-03] MEDS ORDERED: TOCOPHERYL, DL-ALPHA 400 UNITS CAP PO SCH (09:00)
[2020-10-03] MEDS ORDERED: OMEGA-3 (PURIFIED FISH OIL) 1 GM CAP PO SCH (09:00)
[2020-10-03] MEDS ORDERED: FERROUS SULFATE 325 MG TAB PO SCH (09:00)
[2020-10-03] MEDS ORDERED: CHOLECALCIFEROL 1,000 UNITS 25 MCG TAB PO SCH (09:00)
[2020-10-03] MEDS ORDERED: FUROSEMIDE 40 MG TAB PO SCH (09:00)
[2020-10-03] MEDS ORDERED: ZINC SULFATE 220 MG CAPSULE PO SCH (09:00)
[2020-10-03] MEDS ORDERED: CALCIUM CARBONATE 1250MG TAB PO SCH (09:00)
[2020-10-03] MEDS ORDERED: MULTIVITAMIN TAB PO SCH (09:00)
[2020-10-03] MEDS ORDERED: CYANOCOBALAMIN 500 MCG TABLET (VITAMIN B-12) PO SCH (09:00)
--- NOTE | 2020-10-03 09:38 | Orthopedic Progress Note ---
Date of Service October 03, 2020 Assessment & Plan (1) Status post total right knee replacement: Admission and Anticipated Discharge Date Admission Date: October 02, 2020 Doing well. X-rays reviewed. Radiographs show anatomic alignment without evidence of complication. PT today. Lovenox for DVT prophylaxis. The importance of not overdoing it and resting is discussed. We talked about potential discharge today pending PT and pain control. Will then have follow-up in the next few days to monitor his wound. Continue to elevate ice. He will have home PT. He will continue his Lovenox with monitoring of labs. Labs today are noted. If there is any problems with bleeding or any other problems or questions he will let us know. Subjective Resting comfortably in bed. Has been out of bed to chair. Pain is reasonably well controlled. We discussed methods to prevent constipation and the pain control options. Physical Exam Physical Exam: He has chronic paresthesias and numbness in the foot. His sensory exam is unchanged. He has 5 out of 5 dorsiflexion plantarflexion inversion eversion strength. Including the toes. Dorsalis pedis is 1+. Capillary refill less than 2 seconds. There is some bleeding through the bandage. The dressing is removed and using a clean technique the dressing is changed. There is some superficial oozing and a little bit of fluid/blood underneath the incision which is expressed. A new dressing is applied. Results & Data ([facility]) Vital Signs (Past 12 Hours) Vital Signs Temp Pulse Resp BP Pulse Ox 10/03/20 08:31 36.8 C 74 16 116/75 10/03/20 04:13 36.7 C 85 16 110/73 95 10/02/20 23:21 36.9 C 75 16 110/71 96 Laboratory Results 10/03/20 10/03/20 Range/Units 06:00 06:00 WBC 11.03 H (4.8-10.8) K/uL RBC 3.87 L (4.7-6.1) M/uL Hgb 11.5 L (14.0-18.0) g/dL Hct 34.6 L (42-52) % MCV 89.4 (80-100) fL MCH 29.7 (25-34) pg MCHC 33.2 (32-36) g/dL RDW Std Deviation 45.7 (36.4-46.3) fL RDW Coeff of Poppy 13.9 (11.5-14.5) % Plt Count 283 (130-400) K/uL MPV 9.3 (7.4-10.4) fL Sodium 142 (136-145) mmol/L Potassium 4.4 (3.5-5.1) mmol/L Chloride 110 H (98-107) mmol/L Carbon Dioxide 26 (21-32) mmol/L Anion Gap 6.0 (3-11) BUN 16 (7-18) mg/dl Creatinine 0.89 (0.6-1.4) mg/dl Est Cr Clr Drug Dosing 128.8 ml/min Est GFR ( Amer) 106.2 Est GFR (Non-Af Amer) 91.6 BUN/Creatinine Ratio 17.6 (10-20) Glucose 122 H (70-99) mg/dl Calcium 8.3 L (8.5-10.1) mg/dl
[2020-10-03] MEDS: ENOXAPARIN INJ 30 MG/0.3 ML SYR SQ SCH (10:13)
--- NOTE | 2020-10-03 12:19 | Discharge Summary ---
Date of Service October 03, 2020 Discharge Data Procedures Performed Operation Date: 10/02/20 07:00 Actual Procedures p Right Total Knee Arthroplasty(Right) - Miquel Tillman MD Hospital Course (1) Status post total right knee replacement: Patient was admitted to [facility] after undergoing an elective right total knee arthroplasty on October 02, [address] Tillman. He was kept overnight for observation. He tolerated the procedure well without any intraoperative complications. His surgery was performed with IV sedation, spinal anesthetic and peripheral nerve block. Postoperative x-rays were performed in the PACU of his right knee and showed a stable prosthesis with no evidence of fractures. He was allowed out of bed, weight-bear as tolerated on his right lower extremity with the assistance of a walker and knee immobilizer when out of bed for 24 hours. He tolerated a regular diet. His home medications were continued. He was given IV morphine, tramadol, Tylenol, oxycodone for postoperative pain relief. He was started on Lovenox 30 mg twice daily at the evening of surgery for DVT prophylaxis. He was also given AAKASH stockings and SCDs for DVT prophylaxis as well. His pain was well controlled with IV morphine and p.o. tramadol. He did take some oxycodone but did not feel that it helped with his pain is much as the tramadol. He denied any postoperative nausea or vomiting.His vital signs remained stable during his inpatient stay. His labs were acceptable postoperatively. He did have some soiled dressings so his dressings on his right knee were changed on postoperative day 1. He was out of bed with nursing as well as physical therapy and Occupational Therapy. He was safe out of bed with the assistance of a walker. He was deemed safe for discharge to his home by physical therapy and Occupational Therapy. He was seen by case management and requested home health and physical therapy. His insurance does not cover home nursing so he will go home with in-home physical therapy but not nursing. Intraoperative x-rays were reviewed with the patient. Discharge instructions were also reviewed. He will plan to go home with his on October 03, 2020. He was discharged in stable condition. All questions were answered and discharge instructions were provided. We will follow up on Thursday for dressing change. Discharge Instructions New Medicine: * You will likely be taking one or more of these medications: 1. Lovenox - You will be on Lovenox for 2-4 weeks after surgery to prevent blood clots. Do not take anti-inflammatory pills (Advil or Aleve) while on Lovenox. Aspirin, 81 mg is OK. 2. Tramadol - take, as directed, when you need it, every four to six hours to control your pain. 3. Colace & Senokot - Take to prevent constipation which can be caused by narcotics. These can be bought [id number] at the pharmacy * The most common side effects of pain medicine and iron are nausea and constipation. If nausea or constipation is too much of a problem or if you have any questions about your new medicines or doses, call [facility] at . We will try to help you manage these issues. "VERY IMPORTANT TO READ AND REVIEW" Blood Clots and Blood Thinning Medicine: * You are given Lovenox during the immediate post-operative period to lessen the risk of blood clots forming in your legs and/or lungs. Lovenox is usually given for 2-4 weeks after surgery. * The prescription is for 30 mg syringes. * You need to get your blood checked on Thursday10/08/20. * If your dose needs to change, we will call you. Do not take your medication on the day of the blood test until we call you. Physical Therapy: * Do your physical therapy at home. These are the exercises you learned while in the hospital (quad sets, leg raises, calf pumps, gluteal squeezes, knee bending, and heel props.) You should do these exercises 3-4 times per day. * You will either go to inpatient rehab ([facility]), home with Home Therapy and nursing or home with outpatient rehab. You should do rehab with the therapist 2-3 times per week. You should do therapy on your own daily. * You may bear full weight on your leg with crutches or walker unless otherwise advised. Home Exercise: * You were shown a series of exercises (heel props, heel slides, etc.) in the hospital. Do these exercises three to four times each day including the exercises you were shown in physical therapy. Walking: * You may be up for short periods of time. Standing and walking for 1-2 hours at a time is usually okay. You should not stand or walk for excessive periods of time as this may Cause increased pain and swelling. SELF CARE INSTRUCTIONS AFTER TOTAL KNEE REPLACEMENT A. You may need to continue a physical therapy program after discharge from the hospital. There are several options available to you. Your doctor will assist you in selecting the best one for you. 1. An out-patient facility 2 to 3 times a week for therapy or home therapy. 2. Continue working on all exercises taught to you in the hospital. Your goals should be to increase bending of your knee to 90 degrees and beyond and to fully straighten your knee. B. Your therapist will notify you when you are able to progress from a walker to a cane. C. Wear TEDS as much as possible.~ They may be removed at night for laundering. D. Do not place a pillow behind your knee when resting. A pillow at your ankle is okay. E. Ice your knee 15-20 minutes every 2-3 hours and elevate it above the level of your heart. F. You may shower on the fourth day after surgery using regular soap and water. Do not submerge until the wound is completely healed (approximately 2 weeks). Until the fourth day after surgery, cover the incision/bandage with a bag or plastic wrap. G. Anyone who is touching your surgical incision area should wash their hands and wear gloves. H. Keep your incision covered with gauze pads under the AAKASH hose until it is dry. VERY IMPORTANT TO READ AND REVIEW A. YOU WILL BE GIVEN AN ORDER AT DISCHARGE FOR CBC (BLOOD WORK). PLEASE HAVE THIS DONE INSTRUCTED. Since you have no home health you will need to have this performed at an outpatient lab. B. There are a few signs you need to watch for after you are home. Call [facility] if you notice any of the followin. Increased severe knee pain. Some pain is expected especially when you exercise. 2. Increased swelling in your leg or knee; pain or swelling of the calf muscle in either lower leg. 3. Any fluid drainage from the incision. 4. Shortness of breath or chest pain. 5. Numbness and tingling in the surgical extremity C. Please call [facility] at if you have any concerns or questions about your operation or recovery. The doctor or his nurse will return your call promptly. D. Do not have any elective dental work or other elective procedures done for 6 weeks after your knee replacement. When you have any invasive procedure (dental cleaning, extraction, colonoscopy etc) performed, you will need to take antibiotics to prevent infection from developing in your artificial joint. Tell your other health care providers you have an artificial joint. My office will supply you with further information and the antibiotics. Call your doctor if: * Temperature above 101 degrees F. * Pain not relieved by pain medicine ordered. * Increased drainage or redness from incision. * Notify your doctor with any questions or concerns. Follow-up Visit: You will follow-up with Dr. Tillman 10-14 days after surgery. The office number is . Avoid all tobacco products. If you need help to stop smoking, call [place] at . This is a free call.
[2020-10-03] MEDS ORDERED: CeleBREX 200 MG CAP PO SCH (21:00)
== END 2020-10-03 14:33 | disposition home health service (06) ==
LOC: 3E 05:18 → ASU 05:18